=== PATIENT | female | born 1935 | race Caucasian/White ===

== ENCOUNTER 2019-10-11 21:33 | Inpatient (IN) | payer MEDICARE, OTHER ==
--- NOTE | 2019-10-11 22:16 | RAD ---
XR Hip Rt 2-3 View History: Pain Comparison: None. Findings: Intertrochanteric fracture right femur with medial displacement of the lesser trochanter 1. 2 cm. Minimal varus angulation. Impression: Intertrochanteric fracture right femur with medial displacement of the lesser trochanter 1.2 cm.
--- NOTE | 2019-10-11 22:18 | RAD ---
XR Pelvis AP STANDARD History: Pain Comparison: None. Findings: Intertrochanteric fracture right femur with minimal varus angulation. There is medial displ acement of the lesser trochanter approximately 1.2 cm. Obturator rings are intact. Subcortical cysts of the lateral acetabulum. Likely a ring osteophyte of the right femoral head/neck junction and much less likely a superimposed femoral neck fracture. Impression: Intertrochanteric fracture right femur as described with findings of a ring osteophyte of the lateral femoral head/neck junction and less likely a superimposed subcapital femoral neck fracture. CT may be beneficial if clinically warranted.
[2019-10-11 22:21] LABS: #Eosinphils 0.1 thou/uL (0.0-0.7); #Lymphocytes 1.5 thou/uL (1.20-3.40); #Monocytes 0.7 thou/uL (0.11-0.59); #Neutrophils 8.8 thou/uL (1.40-6.50); %Basophils 0.2 % (0.0-1.0); %Eosinophils 0.8 % (0.0-10.0); %Lymphocytes 13.3 % (21.0-51.0); %Monocytes 6.5 % (0.0-10.0); %Neutrophils 79.2 % (42.0-75.0); Hemoglobin 12.1 g/dL (12.0-16.0); Mean Corpuscular HGB CONC 32.8 g/dL (32.0-36.0); Mean Corpuscular Hemoglobin 30.6 pg (27.0-31.0); Mean Corpuscular Volume 93.3 fL (78.0-98.0); Mean Platelet Volume 9.6 fL (7.4-10.4); Platelet Count 138 thou/uL (130-400); RBC Distribution Width 12.3 % (11.5-14.5); Red Blood Cell (RBC) Count 3.95 mill/uL (4.20-5.40); White Blood Cell (WBC) Count 11.2 thou/uL (4.8-10.8)
[2019-10-11 22:28] LABS: INR-International Normal Ratio 2.5; PTT 39.4 SEC (22.9-36.1); Prothrombin Time 27.2 SEC (12.0-14.7)
[2019-10-11 22:34] LABS: ALT (SGPT) 9 U/L (8-55); AST (SGOT) 17 U/L (5-34); Albumin 3.6 g/dL (3.4-4.8); Alkaline Phosphatase 72 U/L (40-110); Anion Gap 13 mmol/L (10-20); BUN (Urea Nitrogen) 24 mg/dL (9.8-20.1); Bilirubin, Total 0.2 mg/dL (0.2-1.2); CK (CPK) 83 U/L (29-168); Calc. Creatinine Clearance 0 mL/min (70-130); Calcium 8.3 mg/dL (7.8-10.44); Carbon Dioxide 24 mmol/L (23-31); Chloride 108 mmol/L (98-107); Estimated GFR-MDRD 55; Globulin 2.5 g/dL (2.4-3.5); Glucose 138 mg/dL (83-110); Potassium 3.6 mmol/L (3.5-5.1); Protein, Total 6.1 g/dL (6.0-8.3); Sodium 141 mmol/L (136-145)
[2019-10-11] MEDS ORDERED: Morphine 2 MG/ML SYRINGE ONE (22:44)
[2019-10-11] MEDS ORDERED: Lidocaine 1% (PF) 30 ML VIAL ONE (23:24)
[2019-10-11] MEDS ORDERED: Phytonadione 10 MG/ML AMP PO SCH (23:45)
[2019-10-11] MEDS ORDERED: Bacitracin 1 PK ONE (23:47)
[2019-10-12] MEDS ORDERED: Morphine 4 MG/ML VIAL ONE (00:20)
[2019-10-12] MEDS ORDERED: Ondansetron PF 4 MG/2 ML Vial ONE ×2 (00:20→10:19)
[2019-10-12] MEDS ORDERED: Adacel (T-DAP) 0.5 ML SYRINGE ONE (00:23)
[2019-10-12] MEDS ORDERED: Phytonadione 10 MG/ML AMP PO SCH (00:30)
[2019-10-12] MEDS ORDERED: Acetaminophen 500 MG TAB PO SCH (01:35)
[2019-10-12] MEDS ORDERED: Cyclobenzaprine 10 MG TAB PO PRN (01:35)
[2019-10-12] MEDS ORDERED: traMADol HCl 50 MG TAB PO PRN (01:35)
[2019-10-12] MEDS ORDERED: Dextrose 50% Abboject 50 ML SYRINGE SLOW IVP PRN (01:35)
[2019-10-12] MEDS ORDERED: Ondansetron ODT 4 MG TAB PO PRN (01:35)
[2019-10-12] MEDS ORDERED: Dextrose 5% in Water 1,000 ML IV PRN (01:35)
[2019-10-12] MEDS ORDERED: Ondansetron PF 4 MG/2 ML Vial IVP PRN (01:35)
[2019-10-12] MEDS ORDERED: hydrALAZINE 20 MG/ML VIAL SLOW IVP PRN (01:35)
[2019-10-12 01:42] VITALS: BMI 28.3
[2019-10-12] MEDS: Morphine 2 MG/ML SYRINGE SLOW IVP PRN ×2 (01:56→09:56)
[2019-10-12] MEDS: Sodium Chloride 0.9% 1,000 ML IV SCH ×2 (01:58→15:06)
[2019-10-12] MEDS: Ibuprofen 200 MG TAB PO SCH ×3 (01:58→17:07)
--- NOTE | 2019-10-12 01:58 | HP ---
This is Suresh Molina PA-C dictating a report for Travis Costa MD. REQUESTING PHYSICIAN: Dr. Moran. ATTENDING SURGEON: Dr. Costa. CONSULTATIONS: Orthopedics, Dr. Melgoza. HISTORY OF PRESENT ILLNESS: The patient is an 84-year-old woman who was walking at home when she turned and fell to the ground, landing on her right side. She denied loss of consciousness. The patient also denies any syncopal symptoms prior to fall. The patient was brought to the emergency department, where she underwent evaluation and examination and was noted to have small skin tears on her right upper extremity and a right hip fracture, at which time, we were asked to evaluate the patient for admission and obtain Orthopedic consultation. ALLERGIES: NONE. CURRENT MEDICATIONS: 1. Coumadin. 2. Metoprolol. 3. Hydrochlorothiazide. PAST MEDICAL HISTORY: Atrial fibrillation, hypertension, COPD. PAST SURGICAL HISTORY: Appendectomy, cholecystectomy, hysterectomy. SOCIAL HISTORY: The patient lives at home with her spouse. She denies drug, tobacco, or alcohol use. REVIEW OF SYSTEMS: 10-point review of systems is negative as otherwise stated. PHYSICAL EXAMINATION: VITAL SIGNS: Blood pressure 156/54, heart rate 93, respirations 16, oxygen saturation 93% on room air, and temperature is 97.7. GENERAL: The patient is resting comfortably in bed. She is awake, alert, and oriented x3. Robbins Coma Scale is 15. HEENT: Head is normocephalic atraumatic. Eyes, extraocular motion intact. PERRLA bilaterally. Ears are atraumatic without discharge. Nose is atraumatic without discharge. Oropharynx is clear. NECK: Nontender with trachea is midline. No JVD. CHEST: Clear to auscultation with good inspiratory and expiratory effort. HEART: Regular rate and rhythm. ABDOMEN: Soft, flat, nontender with active bowel sounds. PELVIS: Stable with pain at the right hip consistent with her fracture. EXTREMITIES: Neurovascularly intact x4. BACK: By report is atraumatic and nontender. LABORATORY FINDINGS: White blood cell count 11.2, hemoglobin 12.1, hematocrit 36.8, platelets 138. Sodium 141, potassium 3.6, chloride 108, CO2 of 24, BUN 24, creatinine 0.97, glucose 138. LFTs are unremarkable. PTT 40, PTT 27, INR 2.5. Troponin 0.018. RADIOGRAPHIC FINDINGS: AP pelvis shows intertrochanteric fracture of the right femur. Views of the right hip show intertrochanteric femur fracture with medial displacement of the lesser trochanter of 1.2 cm. ASSESSMENT: 1. Status post ground level fall, on Coumadin. 2. Right intertrochanteric femur fracture. 3. Acute pain secondary to above. 4. History of hypertension and atrial fibrillation, on Coumadin. 5. History of chronic obstructive pulmonary disease. PLAN: Plan will be to admit the patient to the surgical floor. She will be made n.p.o. after midnight. We will do pain control, pulmonary toilet, gastritis and mechanical VTE prophylaxis. Postoperatively, we will begin physical and occupational therapy and discuss placement at that time. The evaluation, examination, laboratory, and radiographic findings were discussed with Dr. Melgoza and Dr. Costa prior to this dictation. The patient did receive vitamin K in the emergency department and we will recheck her labs in the morning. Job ID: [id number]
[2019-10-12] MEDS: Acetaminophen 325 MG TAB PO SCH ×4 (02:00→20:58)
[2019-10-12 05:36] LABS: #Lymphocytes 1.1 thou/uL (1.20-3.40); #Monocytes 0.7 thou/uL (0.11-0.59); %Basophils 0.2 % (0.0-1.0); %Eosinophils 0.3 % (0.0-10.0); %Monocytes 7.6 % (0.0-10.0); %Neutrophils 79.9 % (42.0-75.0); Hemoglobin 10.9 g/dL (12.0-16.0); Mean Corpuscular HGB CONC 31.6 g/dL (32.0-36.0); Mean Corpuscular Hemoglobin 29.5 pg (27.0-31.0); Mean Corpuscular Volume 93.2 fL (78.0-98.0); Mean Platelet Volume 9.8 fL (7.4-10.4); Platelet Count 127 thou/uL (130-400); RBC Distribution Width 12.2 % (11.5-14.5); Red Blood Cell (RBC) Count 3.69 mill/uL (4.20-5.40); White Blood Cell (WBC) Count 8.7 thou/uL (4.8-10.8)
[2019-10-12 05:40] LABS: INR-International Normal Ratio 2.8; PTT 44.1 SEC (22.9-36.1); Prothrombin Time 28.9 SEC (12.0-14.7)
[2019-10-12] MEDS: traMADol HCl 50 MG TAB PO PRN ×3 (05:44→22:48)
[2019-10-12 05:56] LABS: Anion Gap 11 mmol/L (10-20); BUN (Urea Nitrogen) 25 mg/dL (9.8-20.1); Calc. Creatinine Clearance 57 mL/min (70-130); Calcium 8.1 mg/dL (7.8-10.44); Carbon Dioxide 24 mmol/L (23-31); Chloride 109 mmol/L (98-107); Estimated GFR-MDRD 59; Glucose 122 mg/dL (83-110); Magnesium 1.6 mg/dL (1.6-2.6); Phosphorus 3.3 mg/dL (2.3-4.7); Potassium 4.2 mmol/L (3.5-5.1); Sodium 140 mmol/L (136-145)
[2019-10-12] MEDS ORDERED: Magnesium 2 GM/50 ML 2 GM in Premix Bag 1 BAG IVPB SCH (06:30)
[2019-10-12] MEDS: Ipratropium Bromide 2.5 ml Neb NEB SCH ×4 (07:31→23:57)
[2019-10-12] MEDS ORDERED: CEFAZOLIN 2 GM in Premix Bag 1 BAG IVPB SCH (08:00)
[2019-10-12] MEDS ORDERED: Hydrochlorothiazide 25 MG TAB PO SCH ×2 (09:00→22:30)
[2019-10-12] MEDS ORDERED: Non-Formulary Item 1 EACH (Fluticasone/Salmeterol [Advair Diskus 250/50] 1 PUFF) INH SCH (09:00)
[2019-10-12] MEDS ORDERED: Metoprolol Tartrate 25 MG TAB PO SCH ×2 (09:00→22:30)
[2019-10-12] MEDS ORDERED: Non-Formulary Item 1 EACH (Hydrochlorothiazide [Hydrochlorothiazide] 12.5 MG) PO SCH (09:00)
[2019-10-12] MEDS ORDERED: Non-Formulary Item 1 EACH (Tiotropium Bromide [Spiriva] 18 MCG) INH SCH (09:00)
--- NOTE | 2019-10-12 09:35 | RAD ---
Right ankle 2 views HISTORY: Right ankle injury. FINDINGS: Talar dome and ankle mortise are intact. Soft tissue swelling overlying the lateral malleol us. No acute fracture or dislocation. 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 IMPRESSION: Soft tissue swelling and degenerative changes. No acute osseous abnormalities are demonst rated.
[2019-10-12 09:45] LABS: INR-International Normal Ratio 2.6; Prothrombin Time 27.7 SEC (12.0-14.7)
[2019-10-12] MEDS: Levothyroxine Sodium 75 MCG TAB PO SCH (10:15)
[2019-10-12] MEDS: Famotidine 20 MG TAB PO SCH (10:15)
[2019-10-12] MEDS ORDERED: Glycopyrrolate 0.2 MG/ML 5 ML SYRINGE ONE (10:19)
[2019-10-12] MEDS ORDERED: Lidocaine 1% PF 5 ML VIAL ONE (10:19)
[2019-10-12] MEDS ORDERED: Rocuronium Bromide 10 MG/ML (10ML VIAL) ONE (10:19)
[2019-10-12] MEDS ORDERED: Dexamethasone 20 MG/5 ML VIAL ONE (10:19)
[2019-10-12] MEDS ORDERED: PROPOFOL 200 MG/20 ML VIAL ONE (10:19)
[2019-10-12] MEDS ORDERED: Fentanyl 100 MCG/2 ML VIAL ONE (12:36)
[2019-10-12 13:24] LABS: INR-International Normal Ratio 1.8; PTT 40.7 SEC (22.9-36.1); Prothrombin Time 20.7 SEC (12.0-14.7)
--- NOTE | 2019-10-12 13:48 | CON ---
DATE OF CONSULTATION: CHIEF COMPLAINT: Hip pain. HISTORY OF PRESENT ILLNESS: Ms. Shields is an 84-year-old female, who was at home yesterday, evening walking. She tripped in her home and lost balance. She fell onto her side. She was unable to bear weight. She had immediate right hip pain. She was taken to the emergency department by EMS. X-rays have determined a right intertrochanteric femur fracture. She has been admitted to the hospital. Orthopedics was consulted to treat her intertrochanteric fracture. She is comfortable currently. Of note, the patient is on Coumadin and she has had an elevated INR at 2.8. ALLERGIES: NONE. MEDICATIONS: 1. Coumadin. 2. Metoprolol. 3. Hydrochlorothiazide. PAST MEDICAL HISTORY: Atrial fibrillation, hypertension, and COPD. PAST SURGICAL HISTORY: Appendectomy, cholecystectomy, and hysterectomy. SOCIAL HISTORY: The patient lives independently. Her spouse is at the bedside. She denies tobacco, alcohol, or drug use. REVIEW OF SYSTEMS: Positive for right hip pain especially with any movement. Otherwise, negative 10-point review of systems. PHYSICAL EXAMINATION: VITAL SIGNS: Temperature is 97.9, pulse is 92, respiratory rate is 16, oxygen saturation 94%, and blood pressure is 121/67. GENERAL: She is alert, lying supine, in no apparent distress. RESPIRATORY: Breathing comfortably. ABDOMEN: Soft, nontender, and nondistended. MUSCULOSKELETAL: The patient's right leg is somewhat shortened and rotated. She has pain with any hip motion. She also has pain to palpation over her ankle, especially at the distal fibula. The left lower extremity and upper extremities are atraumatic. IMAGING DATA: X-rays of the right hip and pelvis demonstrated intertrochanteric femur fracture of the proximal femur. This is comminuted and displaced. IMPRESSION: Right intertrochanteric femur fracture in an elderly female on Coumadin for atrial fibrillation. PLAN: At this point, the patient will require surgical intervention. She has received vitamin K and will receive FFP. If we can get her INR below 2.0, I will proceed with surgery today. This will be intramedullary nail fixation of the right hip. She is aware of risks and benefits. Goal of surgery is to promote early mobilization and prevent complications of prolonged bedrest. She is at risk for complication given her age and comorbidities. She should be n.p.o. We will give her antibiotic prophylaxis and DVT prophylaxis. Job ID: [id number]
--- NOTE | 2019-10-12 14:46 | RAD ---
Exam:Intraoperative fluoroscopy HISTORY: Internal fixation of a right hip intertrochanteric fracture COMPARISON: None FINDINGS: Internal fixation hardware comprising of a gamma nail is noted. Fracture lucency is identif ied. Near anatomic alignment Exposure: 37.8 seconds. 6.24 mGy IMPRESSION: Intraoperative fluoroscopy as above
[2019-10-12] MEDS ORDERED: PACU-Morphine 4MG/ML VIAL SLOW IVP PRN (15:09)
[2019-10-12] MEDS ORDERED: HYDROmorphone 2 MG/ML VIAL SLOW IVP PRN (15:09)
[2019-10-12] MEDS ORDERED: Ondansetron HCl/PF 4 MG/2 ML Vial IVP PRN (15:09)
[2019-10-12] MEDS ORDERED: Promethazine HCl 25 MG/ML VIAL SLOW IVP PRN (15:09)
[2019-10-12] MEDS ORDERED: Morphine Sulfate 2 MG/ML SYRINGE SLOW IVP PRN (15:09)
[2019-10-12] MEDS ORDERED: Promethazine HCl 25 MG/ML VIAL IM PRN (15:09)
--- NOTE | 2019-10-12 15:12 | PRG ---
DATE OF SERVICE: 10/12/2019 This is Shin Andino PA-C dictating a report for Dr. Carbajal. SUBJECTIVE: Ms. Shields is an 84-year-old female, status post ground level fall. She sustained right hip fracture. She also has history of COPD; hypertension; atrial fibrillation, on Coumadin. This morning, INR is 2.8. Dr. Melgoza plans to take the patient to the OR if INR is below 2. The patient was ordered 2 units of FFP this morning. Around noon, the patient's INR is 1.8. The patient planned to go to the OR with Dr. Melgoza this afternoon. The patient reports pain is well controlled. She is n.p.o. at midnight and her vital signs have been stable. OBJECTIVE: GENERAL: The patient is lying in bed comfortably with no acute respiratory distress. The pain of the right hip is tolerable. VITAL SIGNS: Temperature 97, heart rate 72, respiratory rate 16, O2 saturation 94 on room air, and blood pressure 121/67. LUNGS: Clear bilaterally. HEART: Regular rate and rhythm. ABDOMEN: Soft and nondistended. EXTREMITIES: Neurovascularly intact x4. NEUROLOGIC: No focal neurologic deficits. ASSESSMENT: 1. Status post ground level fall. 2. Right hip fracture. 3. History of chronic obstructive pulmonary disease; hypertension; atrial fibrillation, on Coumadin. PLAN: Will be proceed with right hip fracture fixation this afternoon because the INR is below 2 at the moment. Continue supportive care. Continue pain control. The patient will be working with PT and OT postop, and the patient will need pharmacological DVT prophylaxis tomorrow. Anticipate placement in rehabilitation facility. The patient was seen and evaluated with Dr. Carbajal on round this morning. Job ID: [id number]
[2019-10-12] MEDS: Mometasone/Formoterol 120 PUFF INHALER INH SCH (18:46)
--- NOTE | 2019-10-12 20:01 | OP ---
DATE OF PROCEDURE: 10/12/2019 PROCEDURE PERFORMED: Right femur intramedullary nail. PREOPERATIVE DIAGNOSIS: Right femur intertrochanteric fracture. POSTOPERATIVE DIAGNOSIS: Right femur intertrochanteric fracture. COMPLICATIONS: None. ESTIMATED BLOOD LOSS: 150 mL. PRODUCER ARBORIST MANAGER: Josh Ramos PA-C IMPLANT: Synthes 10 mm short trochanteric nail with helical blade. INDICATIONS: Ms. Shields is an 84-year-old female, who fell and fractured her right femur. She has been indicated for intramedullary nail of the right femur to restore mobility and prevent complications of prolonged bedrest. Risk of surgery have been reviewed and she has elected to proceed with the operation. DESCRIPTION OF PROCEDURE: Ms. Shields was identified in the preoperative holding area. Her correct extremity was marked. She was carried to the operating room. She was positioned supine. General anesthesia was induced. A multidisciplinary time-out was performed. The right lower extremity was prepped and draped in sterile fashion. We obtained an appropriate reduction with traction table. We evaluated with intraoperative x-ray. At this point, we made a small incision over the greater trochanter. We dissected down and placed our guidewire to the tip of the trochanter. We then over-reamed the guidewire. Next, we inserted a 10 mm short trochanteric nail. We then placed a guide pin in the centered position of the femoral head. We overdrilled this. We then impacted a helical blade, which was locked in a dynamic position. Finally, we placed a distal Crosslock screw using the appropriate guide. We then thoroughly irrigated with copious lavage. We closed the wounds appropriately. We took final x-ray images. We then transported the patient to the recovery room in good condition. Job ID: [id number]
[2019-10-12] MEDS: Atorvastatin Calcium 20 MG TAB PO SCH (20:58)
[2019-10-12] MEDS: Senokot S 8.6-50 MG TAB PO SCH (20:58)
[2019-10-12] MEDS ORDERED: Simvastatin 40 MG TAB PO SCH (21:00)
[2019-10-12] MEDS: CEFAZOLIN 2 GM in Premix Bag 1 BAG IVPB SCH (21:00)
[2019-10-12] MEDS ORDERED: Melatonin 3 MG TAB PO PRN (21:03)
[2019-10-12] MEDS ORDERED: Calcium Carbonate + Vit D 1 TAB PO SCH (22:30)
[2019-10-12] MEDS ORDERED: Montelukast Sodium 10 mg Tablet PO SCH (22:30)
[2019-10-12] MEDS ORDERED: Estrogens, Conjugated 0.3 MG TAB PO SCH (22:30)
[2019-10-13] MEDS: Acetaminophen 325 MG TAB PO SCH ×4 (01:43→19:26)
[2019-10-13] MEDS: Ibuprofen 200 MG TAB PO SCH ×2 (01:43→08:48)
--- NOTE | 2019-10-13 02:15 | PRG ---
DATE OF SERVICE: 10/13/2019 SUBJECTIVE: The patient is currently on the surgical floor. She is admitted yesterday, status post ground level fall when she sustained a right femur intertrochanteric fracture. The patient is on Coumadin and she was given vitamin K in the emergency department last night and this morning, she was given 2 units of fresh frozen plasma, allowing her to go to the operating room to undergo a right femur intramedullary nail placement. She tolerated the procedure well. At the time of my visit, she was on the surgical floor. Due to her arrival back on the floor, she did not get to work with Physical Therapy today. She is tolerating her diet and her pain is controlled at this time. PHYSICAL EXAMINATION: VITAL SIGNS: Stable. The patient is afebrile. GENERAL: The patient is resting comfortably in bed. She is awake, alert, and oriented x3. Oleksandr Coma Scale is 15. HEENT: Unremarkable. LUNGS: Clear to auscultation bilaterally. HEART: Irregularly irregular consistent with her atrial fibrillation. ABDOMEN: Soft, flat, nontender with active bowel sounds. EXTREMITIES: Neurovascularly intact x4. Postop dressing is clean, dry, and intact. ASSESSMENT: 1. Status post ground level fall, on Coumadin. 2. Right intertrochanteric femur fracture, status post intramedullary nailing. 3. Acute pain secondary to above. 4. History of hypertension and atrial fibrillation and chronic obstructive pulmonary disease. PLAN: Will be to continue supportive care. Encourage physical and occupational therapy and await placement decision. Job ID: [id number]
[2019-10-13] MEDS: CEFAZOLIN 2 GM in Premix Bag 1 BAG IVPB SCH (04:52)
[2019-10-13 05:22] LABS: INR-International Normal Ratio 1.5; Prothrombin Time 17.8 SEC (12.0-14.7)
[2019-10-13 05:26] LABS: Phosphorus 3.1 mg/dL (2.3-4.7)
[2019-10-13 05:28] LABS: Anion Gap 11 mmol/L (10-20); BUN (Urea Nitrogen) 21 mg/dL (9.8-20.1); Calc. Creatinine Clearance 60 mL/min (70-130); Calcium 7.9 mg/dL (7.8-10.44); Carbon Dioxide 24 mmol/L (23-31); Chloride 106 mmol/L (98-107); Estimated GFR-MDRD 63; Glucose 140 mg/dL (83-110); Potassium 4.6 mmol/L (3.5-5.1); Sodium 136 mmol/L (136-145)
[2019-10-13] MEDS: Levothyroxine Sodium 75 MCG TAB PO SCH (07:19)
[2019-10-13] MEDS: Ipratropium Bromide 2.5 ml Neb NEB SCH ×3 (07:22→19:22)
[2019-10-13] MEDS: Mometasone/Formoterol 120 PUFF INHALER INH SCH ×2 (07:22→19:32)
[2019-10-13] MEDS: Polyethylene Glycol 3350 17 GM Packet PO SCH (08:47)
[2019-10-13] MEDS: Famotidine 20 MG TAB PO SCH (08:47)
[2019-10-13] MEDS: Senokot S 8.6-50 MG TAB PO SCH ×2 (08:48→21:31)
[2019-10-13] MEDS: traMADol HCl 50 MG TAB PO PRN (09:39)
[2019-10-13] MEDS ORDERED: Ibuprofen 200 MG TAB PO PRN (09:56)
--- NOTE | 2019-10-13 10:03 | PRG ---
DATE OF SERVICE: 10/13/2019 SUBJECTIVE: Sena is an 84-year-old female postoperative day 1 from a right hip short transfemoral nail fixation for a three-part intertrochanteric hip fracture on the right. Her pain is better this morning and she is able to engage with physical therapy and is able to stand and take a few steps at bedside. OBJECTIVE: VITAL SIGNS: Temperature 97.3, pulse rate 80, respiratory rate 14 and nonlabored, and blood pressure is 104/60. GENERAL: She is alert and oriented to person, place, time, and situation. Responsive and appropriate with examiner. Incision is clean, no shortening or malrotation. No leg length discrepancy is identified and our incision is clean. No strike through. LABORATORY DATA: Hemoglobin and hematocrit 10.9 and 34.4. IMPRESSION: An 84-year-old female postoperative day 1 right hip short nail fixation for a three-part intertrochanteric hip fracture. PLAN: Continue current care. Resume anticoagulation. Job ID: [id number]
[2019-10-13] MEDS: traMADol HCl 50 MG TAB PO SCH ×3 (11:07→21:54)
--- NOTE | 2019-10-13 15:45 | PRG ---
DATE OF SERVICE: 10/13/2019 SUBJECTIVE: Ms. Shields is an 84-year-old female, status post ground level fall. She sustained right hip fracture. She underwent ORIF of right hip fracture with Dr. Melgoza yesterday. The patient tolerated the procedure well. Postop, the patient reports she has been doing good. Pain is controlled. She tolerated with her regular diet. She developed no fever or shortness of breath. Her urine is adequate. OBJECTIVE: GENERAL: The patient is lying in bed comfortable with no acute respiratory distress. The patient is alert and awake. GCS 15. VITAL SIGNS: Temperature 97.5, heart rate 82, respiratory rate 16, O2 saturation 94% on room air, and blood pressure 102/65. LUNGS: Clear bilaterally. HEART: Regular rate and rhythm. ABDOMEN: Soft, nondistended. EXTREMITIES: Postop dressing clean, dry, intact. Neurovascularly intact x4. ASSESSMENT: 1. Status post ground level fall. 2. Right hip fracture. 3. History of chronic obstructive pulmonary disease. 4. Atrial fibrillation, on Coumadin. PLAN: The patient will be working with PT/OT today and we will initiate DVT prophylaxis with Lovenox bridge and start warfarin 5 mg a day. We will recheck INR tomorrow. Anticipate placement in [facility]. The patient was seen and evaluated with Dr. Carbajal on rounds this morning. Job ID: [id number]
[2019-10-13] MEDS: Acetaminophen 500 MG TAB PO SCH ×2 (16:27→21:47)
[2019-10-13] MEDS ORDERED: Warfarin Sodium 5 MG TAB PO SCH (17:00)
[2019-10-13] MEDS ORDERED: Estrogens, Conjugated 0.3 MG TAB PO SCH (21:00)
[2019-10-13] MEDS ORDERED: Calcium Carbonate + Vit D 1 TAB PO SCH (21:00)
[2019-10-13] MEDS ORDERED: Montelukast Sodium 10 mg Tablet PO SCH (21:00)
[2019-10-13] MEDS ORDERED: Enoxaparin Sodium 40 MG/0.4 ML SYRINGE SC SCH (21:00)
[2019-10-13] MEDS ORDERED: Hydrochlorothiazide 25 MG TAB PO SCH (21:00)
[2019-10-13] MEDS ORDERED: Metoprolol Tartrate 25 MG TAB PO SCH (21:00)
[2019-10-13] MEDS: Atorvastatin Calcium 20 MG TAB PO SCH (21:30)
--- NOTE | 2019-10-14 00:12 | PRG ---
DATE OF SERVICE: 10/13/2019 SUBJECTIVE: The patient remains on the surgical floor. She is status post open reduction and internal fixation of a right femur fracture. She tolerated it well. Today, she did work with Physical and Occupational Therapy. She is tolerating a diet. Her pain is controlled. The day team has also resumed her Coumadin with a Lovenox bridge. The patient is also working toward placement in [facility]. PHYSICAL EXAMINATION: VITAL SIGNS: Stable. The patient is afebrile. GENERAL: The patient is resting comfortably in bed. She was asleep when I entered the room, but did wake up shortly to tell me that her pain was controlled and she had no issues at this time. Respirations are nonlabored. The patient is moving all of her extremities. Her postop dressing is clean, dry, and intact. ASSESSMENT: 1. Status post ground level fall, on Coumadin. 2. Status post intramedullary nailing of a right intertrochanteric femur fracture. 3. History of chronic obstructive pulmonary disease, hypertension, and atrial fibrillation. PLAN: Will be to continue supportive care, chemical VTE prophylaxis as instructed by day team and work on placement. Job ID: [id number]
[2019-10-14] MEDS: Ipratropium Bromide 2.5 ml Neb NEB SCH ×3 (00:25→15:58)
[2019-10-14] MEDS: Acetaminophen 500 MG TAB PO SCH (03:50)
[2019-10-14 05:17] LABS: INR-International Normal Ratio 1.2; PTT 38.1 SEC (22.9-36.1); Prothrombin Time 15.6 SEC (12.0-14.7)
[2019-10-14] MEDS: traMADol HCl 50 MG TAB PO SCH (06:09)
[2019-10-14] MEDS ORDERED: Acetaminophen/Codeine 30-300mg Tablet PO PRN ×2 (06:53)
[2019-10-14] MEDS: Famotidine 20 MG TAB PO SCH (08:56)
[2019-10-14] MEDS: Polyethylene Glycol 3350 17 GM Packet PO SCH (08:56)
[2019-10-14] MEDS: Levothyroxine Sodium 75 MCG TAB PO SCH (08:56)
[2019-10-14] MEDS: Senokot S 8.6-50 MG TAB PO SCH (08:56)
[2019-10-14] MEDS: Mometasone/Formoterol 120 PUFF INHALER INH SCH (10:05)
[2019-10-14] MEDS: Acetaminophen/Codeine 30-300mg Tablet PO SCH ×2 (12:45→18:07)
[2019-10-14] MEDS ORDERED: Warfarin Sodium 5 MG TAB PO SCH (17:00)
[2019-10-14 17:32] VITALS: BP 102/65; TEMP 98.6
--- NOTE | 2019-10-15 08:11 | PQF ---
ADRIEN MATTSON RICHARD D MD [id number] [facility] [id number] CLINICAL DOCUMENTATION CLARIFICATION FORM: POST DISCHARGE Addendum to original discharge summary date: ____ Late entry note date: __ DATE: 10/15/2019 ATTN:BIANCA EWING MD Please exercise your independent, professional judgment in responding to the clarification form. Clinical indicators are provided on the bottom of this form for your review Please check appropriate box(s): [yes ] Paroxysmal Atrial Fibrillation [ ] Persistent Atrial Fibrillation [ yes ] Chronic Atrial Fibrillation (includes permanent Atrial Fibrillation) [ ] Other diagnosis [ ] Unable to determine For continuity of documentation, please document condition throughout progress notes and discharge summary. Thank You. CLINICAL INDICATORS - SIGNS / SYMPTOMS / LABS PMH; Atrial fibrillation -Documented in H&P on 10/11 by Tracy Prince PA-C The patient is on Coumadin and she has had an elevated INR at 2.8-Documented in consultation report on 10/12 by Ki Melgoza MD Atrial fibrillation on Coumadin-Documented in PN on 10/13 by Shin Andino PA-C RISKS FACTORS HTN-Documented in H&P on 10/11 by Tracy Prince PA-C PMH; Atrial fibrillation -Documented in H&P on 10/11 by Tracy Prince PA-C TREATMENTS: Current medications:Coumadin-Documented in H&P on 10/11 by Tracy Prince PA-C (This form is maintained as a part of the permanent medical record) 2014 [employer]. All Rights Reserved [email or web address]
[2019-10-15] MEDS ORDERED: Warfarin Sodium 7.5 MG TAB PO SCH (17:00)
--- NOTE | 2019-10-17 09:50 | DIS ---
DATE OF ADMISSION: 10/11/2019 DATE OF DISCHARGE: 10/14/2019 ADMISSION DIAGNOSES: 1. Status post ground level fall. 2. Right hip fracture. 3. History of atrial fibrillation, on Coumadin. 4. Chronic obstructive pulmonary disease. DISCHARGE DIAGNOSES: 1. Status post ground level fall. 2. Right hip fracture. 3. Atrial fibrillation, on Coumadin. 4. History of chronic obstructive pulmonary disease. CONSULTING PHYSICIAN: Dr. Melgoza. PROCEDURE: Right femur intramedullary nail. HOSPITAL COURSE: Ms. Shields is an 84-year-old female status post ground level fall. She sustained right hip fracture. She underwent ORIF of right hip fracture with Dr. Melgoza, postop day #2. The patient tolerated the procedure well. Postop, the patient doing good. Pain is well controlled. She is able to work with Physical Therapy and Occupational therapy. Her urine adequate. She tolerated with her regular diet. Her bowel is normal. Overall, she voiced no concern. PHYSICAL EXAMINATION: GENERAL: The patient lying in bed comfortable with no acute respiratory distress. VITAL SIGNS: Temperature 98.7, heart rate 90, respiratory rate is 16, O2 saturation 98 on 2 L cannula, and blood pressure is 110/50. LUNGS: Clear bilaterally. HEART: Regular rate and rhythm. ABDOMEN: Soft, nondistended. EXTREMITIES: Neurovascularly intact x4. NEUROLOGICAL: No focal neurology deficits. DISCHARGE DISPOSITION: Swing bed facility. DISCHARGE CONDITION: Fair. DISCHARGE INSTRUCTIONS: The patient is to take medication as directed. The patient is encouraged working with Physical Therapy and Occupational Therapy. Continue DVT prophylaxis. Resume on home medication. Resume warfarin and we will need to recheck INR per protocol. DISCHARGE MEDICATION: 1. Tylenol. 2. Lovenox. 3. Tylenol No.3. 4. Resume all home medication. Job ID: [id number]
--- NOTE | 2019-10-22 13:56 | EKG ---
Test Reason : FALL Blood Pressure : / mmHG Vent. Rate : 077 BPM Atrial Rate : 085 BPM P-R Int : 000 ms QRS Dur : 106 ms QT Int : 464 ms P-R-T Axes : 000 074 047 degrees QTc Int : 525 ms Atrial fibrillation Prolonged QT Abnormal ECG Confirmed by TUSHAR BEE MD ([id number]), editorial director IDALMIS FERRO ([id number]) on 10/22/2019 1:56:21 PM Referred By: ROHIT Confirmed By:TUSHAR BEE MD
== END 2019-10-14 18:19 | DRG 482 ==
LOC: ERS 21:33 → SJJU 23:05
PROVIDERS: ADMIT Specialist; ATTEND Specialist
PROC: 0QS636Z Reposition Right Upper Femur with Intramedullary Internal Fixation Device, Percutaneous Approach (ICD-10-PCS; principal; 2019-10-12)
DX: S72.141A Displaced intertrochanteric fracture of right femur, initial encounter for closed fracture (principal); J44.9 Chronic obstructive pulmonary disease, unspecified; I10 Essential (primary) hypertension; G89.11 Acute pain due to trauma; I48.0 Paroxysmal atrial fibrillation; Z90.49 Acquired absence of other specified parts of digestive tract; Z90.710 Acquired absence of both cervix and uterus; W18.39XA Other fall on same level, initial encounter; Y93.01 Activity, walking, marching and hiking; Y92.098 Other place in other non-institutional residence as the place of occurrence of the external cause
CPT/HCPCS: 12001; 36415; 36430; 72170; 76000; 80048; 80053; 82550; 83735; 84100; 84484; 85025; 85610; 85730; 86850; 86900; 86901; 90471; 90715; 93005; 94640; 96374; 96375; 96376; C1713; J0690; J1100; J1650; J2001; J2270; J2405; J2704; J3010; J3430; J3475; J7620; P9059; Q0162

== ENCOUNTER 2019-10-18 14:14 | Inpatient (IN) | payer MEDICARE, OTHER ==
[2019-10-18] MEDS ORDERED: MD-Gastroview 120 ML BOT ONE (14:22)
--- NOTE | 2019-10-18 14:57 | PDOC.HHP ---
Hospitalist HPI - History of Present Illness Abdominal pain History of Present Illness: This is an 84-year-old female with a recent right hip fracture status post pinning last week. She was discharged to snf facility yesterday. Today she was experiencing persistent nausea and vomiting and was transferred to [facility] emergency department where an abdominal x-ray was performed and showed results suggestive of small bowel obstruction. The patient was subsequently transferred to our facility for further evaluation. The patient has a past medical history of hypertension, COPD, atrial fibrillation on warfarin, and hypothyroidism. Hospitalist ROS - Review of Systems All other systems reviewed; all pertinent +/- noted in HPI/Subj Hospitalist History - Past Medical History Cardiac: reports: AFIB, HTN Pulmonary: reports: COPD Endocrine: reports: Hypothyroidism - Past Surgical History Other Surgical History: Right hip fracture pinning - Family History Family History: reports: no pertinent history - Exam General Appearance: NAD Eye: PERRL ENT: normocephalic atraumatic Neck: supple Heart: RRR, no murmur, no gallops, no rubs Respiratory: CTAB, no wheezes, no rales Gastrointestinal: soft, tender to palpation Neurological: cranial nerve grossly intact, no focal deficits Hospitalist Results - Labs Result Diagrams: 10/19/19 03:43 10/19/19 03:43 Hospitalist H&P A/P - Problem (1) SBO (small bowel obstruction) Code(s): K56.609 - UNSP INTESTNL OBST, UNSP TO PARTIAL VERSUS COMPLETE OBST Status: Acute (2) HTN (hypertension) Code(s): I10 - ESSENTIAL (PRIMARY) HYPERTENSION Status: Acute (3) COPD (chronic obstructive pulmonary disease) Status: Acute (4) Afib Code(s): I48.91 - UNSPECIFIED ATRIAL FIBRILLATION Status: Acute - Plan Plan: Admitted for possible small bowel obstruction based on her symptoms and abdominal x-ray. N.p.o. Insert NG tube and start low intermittent suction. Check CT abdomen and pelvis with contrast. Consult the surgical team. DuoNeb every 6 hours as needed for COPD. Restart her rate control medications and warfarin for A. fib once she is able to take p.o. Check INR in the morning. This dictation was completed using advanced voice recognition dictation software. There may be some errors in grammar, punctuation, context or verbiage that were not identified and corrected at the time of this dictation. If questions are present, please consult the author of this dictation for further clarification. It is my goal to try to catch these mistakes at the time of dictation but errors may still occur. Thank you for your understanding.
[2019-10-18] MEDS ORDERED: Morphine 2 MG/ML SYRINGE SLOW IVP SCH (15:00)
[2019-10-18] MEDS: Sodium Chloride 0.9% 1,000 ML IV SCH (15:00)
[2019-10-18] MEDS ORDERED: Morphine 2 MG/ML SYRINGE SLOW IVP PRN (15:18)
[2019-10-18 15:55] LABS: Hemoglobin 9.1 g/dL (12.0-16.0); Mean Corpuscular HGB CONC 33.4 g/dL (32.0-36.0); Mean Corpuscular Hemoglobin 31.9 pg (27.0-31.0); Mean Corpuscular Volume 95.6 fL (78.0-98.0); Platelet Count 231 thou/uL (130-400); RBC Distribution Width 13.8 % (11.5-14.5); Red Blood Cell (RBC) Count 2.85 mill/uL (4.20-5.40); White Blood Cell (WBC) Count 11.8 thou/uL (4.8-10.8)
[2019-10-18 15:58] LABS: INR-International Normal Ratio 1.4; Prothrombin Time 17.3 SEC (12.0-14.7)
[2019-10-18 16:09] LABS: Band 15 % (5-11); Lymphocytes 13 % (21-51); MDiff Complete? YES; Monocytes 6 % (0-10); Neutrophil 65 % (42-75); Nucleated RBC 1 % (0); Platelet Morphology Comment Appears Adequate; Polychromasia MODERATE = 3-4 cells (100X) (0-2/hpf)
[2019-10-18 16:13] LABS: Anion Gap 20 mmol/L (10-20); BUN (Urea Nitrogen) 27 mg/dL (9.8-20.1); Calc. Creatinine Clearance 49 mL/min (70-130); Calcium 8.8 mg/dL (7.8-10.44); Carbon Dioxide 23 mmol/L (23-31); Chloride 98 mmol/L (98-107); Estimated GFR-MDRD 50; Glucose 102 mg/dL (83-110); Potassium 3.5 mmol/L (3.5-5.1); Sodium 137 mmol/L (136-145)
[2019-10-18] MEDS ORDERED: Sodium Chloride 0.9% 10 ML ONE (16:40)
[2019-10-18] MEDS: Ondansetron PF 4 MG/2 ML Vial IVP PRN (17:07)
[2019-10-18] MEDS: Metoprolol Tartrate 5 MG/5 ML VIAL IVP PRN ×2 (17:09→22:16)
--- NOTE | 2019-10-18 18:06 | CON ---
DATE OF CONSULTATION: 10/18/2019 GENERAL SURGEON: Dr. Carbajal. HISTORY OF PRESENT ILLNESS: The patient is an 84-year-old female presented to the emergency department status post discharge from long term facility with persistent nausea and vomiting. The patient was recently inpatient at [facility] after a mechanical fall, where the patient sustained a right hip fracture for which she went to the OR with Dr. Melgoza and received a right femur IM nail. She presents today with persistent nausea, vomiting. Abdominal x-ray demonstrates concern for ileus. Hospitalists have admitted the patient and have consulted General Surgery for concern for small bowel obstruction. At the time of our evaluation, the patient reported she was not having any abdominal pain, but it was difficult to ascertain as to when her last bowel movement was. She does report that she did have a bowel movement postoperatively. NG tube was in place with green bilious output, not working appropriately. NG tube was flushed several times and working well before leaving the patient's room. The patient reports she has continued nausea, but has not vomited since the NG tube has been placed. REVIEW OF SYSTEMS: All additional 10-point review of systems negative except as indicated above. PAST MEDICAL HISTORY: Hypertension, COPD, atrial fibrillation on Coumadin, and hypothyroidism. PAST SURGICAL HISTORY: Right hip IM nail, appendectomy, cholecystectomy, hysterectomy. SOCIAL HISTORY: The patient lives at home with her spouse. She denies drug, alcohol, and tobacco use. MEDICATIONS: Include; 1. Tylenol with codeine. 2. Calcium and vitamin D. 3. Flexeril. 4. Lovenox. 5. Estrogen. 6. Pepcid. 7. Fluticasone. 8. Hydralazine. 9. Hydrochlorothiazide. 10. Ibuprofen. 11. DuoNebs. 12. Levothyroxine. 13. Melatonin. 14. Metoprolol. 15. Singulair. 16. MiraLAX. 17. Senokot S. 18. Simvastatin. 19. Spiriva. 20. Coumadin. The patient takes 5 mg p.o. daily on Thursday through Thursday and takes 7.5 mg on Thursday. ALLERGIES: NO KNOWN DRUG ALLERGIES. PHYSICAL EXAMINATION: VITAL SIGNS: Temperature 98.1, pulse 108, respirations 20, oxygen saturation 100% on 2 L nasal cannula, blood pressure 128/60. GENERAL: Ill-appearing elderly female, sitting up in bed with NG tube in place. There is some moderate distress. The patient reports nausea. PULMONARY: Equal chest rise and fall. Clear breath sounds bilaterally. No signs of acute respiratory distress. CARDIAC: Tachycardic and irregular rhythm. No murmurs, gallops, or rubs. GI: Abdomen is soft, nontender, nondistended. EXTREMITIES: 2+ pulses in all extremities. Gross motor and sensations intact. No significant swelling noted. NEURO: GCS is 15. Pupils are equal, round, and reactive to light bilaterally. LABORATORY FINDINGS: White count 11.8, hemoglobin 9.1, hematocrit 27.2, platelets 231. INR 1.4. Sodium 137, potassium 3.5, chloride 98, bicarb 23, BUN 27, creatinine 1.06, glucose 102. DIAGNOSTIC FINDINGS: X-ray of the abdomen completed this morning demonstrates evidence of small bowel obstruction, probable fluid-filled distended stomach, minimal gas and fecal material in the colon. ASSESSMENT: 1. Adynamic ileus, rule out small-bowel obstruction. 2. History of atrial fibrillation, on Coumadin; hypertension; hyperlipidemia; chronic obstructive pulmonary disease, and hypothyroidism. PLAN: The patient is to receive an abdominal small-bowel follow-through this evening, we will continue n.p.o. IV pain medications p.r.n., normal saline at [address] We will also place the patient on IV Pepcid b.i.d. repeat lab work in the morning. Additional medical management by hospitalist team. Once the patient's small bowel follow-through has been completed, we will determine whether or not the patient requires surgical intervention. The patient also to work with PT/OT and ambulate as much as possible. Continue NG to low intermittent wall function when patient is not getting the small bowel follow-through. This patient was seen and examined by Dr. Carbajal and myself this evening on telemetry. Job ID: [id number]
[2019-10-18] MEDS: Enoxaparin Sodium 40 MG/0.4 ML SYRINGE SC SCH (22:16)
[2019-10-18] MEDS: Famotidine/PF 20 mg/2ml Vial SLOW IVP SCH (22:16)
--- NOTE | 2019-10-18 23:18 | RAD ---
EXAM: XR Small Bowel STANDARD DATE: 10/18/2019 4:06 PM INDICATION: Small bowel obstruction COMPARISON: Abdomen 2 views dated October 18, 2019 FINDING: Gastrografin contrast was administered through the patient's gastric catheter. There is axel y little migration of the Gastrografin contrast through the level of the jejunum. Dilated loops of small bowel remain within the upper central abdomen. Gas is present with the level of the rectum and colon. Cholecystectomy clips are seen within the right upper quadrant of the abdomen. IMPRESSION:Findings most consistent with a moderate to high-grade partial small bowel obstruction. Ve ry minimal amounts of contrast migrated through the level of the proximal small bowel by 4 hours. Findings were called to JULIANNA To at 11:13 PM on October 18, 2019. Instructed signal technician to instruct the patient's nurse to place patient's NG tube back on gentle suction and keep the patient's head of bed elevated 30 degrees to prevent aspiration of Gastrografin remaining within the stomach.
[2019-10-19] MEDS: Sodium Chloride 0.9% 1,000 ML IV SCH ×3 (03:02→20:41)
[2019-10-19] MEDS: Metoprolol Tartrate 5 MG/5 ML VIAL IVP PRN ×3 (03:03→15:30)
[2019-10-19 04:03] LABS: #Eosinphils 0.1 thou/uL (0.0-0.7); #Lymphocytes 1.2 thou/uL (1.20-3.40); #Neutrophils 9.6 thou/uL (1.40-6.50); %Basophils 0.2 % (0.0-1.0); %Eosinophils 0.5 % (0.0-10.0); %Lymphocytes 9.8 % (21.0-51.0); %Monocytes 8.2 % (0.0-10.0); %Neutrophils 81.2 % (42.0-75.0); Hemoglobin 9.2 g/dL (12.0-16.0); Mean Corpuscular Hemoglobin 32.6 pg (27.0-31.0); Mean Platelet Volume 9.2 fL (7.4-10.4); Platelet Count 232 thou/uL (130-400); RBC Distribution Width 13.9 % (11.5-14.5); Red Blood Cell (RBC) Count 2.81 mill/uL (4.20-5.40); White Blood Cell (WBC) Count 11.8 thou/uL (4.8-10.8)
[2019-10-19 04:09] LABS: INR-International Normal Ratio 1.5; Prothrombin Time 18.1 SEC (12.0-14.7)
[2019-10-19 04:19] LABS: Anion Gap 19 mmol/L (10-20); BUN (Urea Nitrogen) 28 mg/dL (9.8-20.1); Calc. Creatinine Clearance 54 mL/min (70-130); Calcium 8.8 mg/dL (7.8-10.44); Carbon Dioxide 24 mmol/L (23-31); Chloride 99 mmol/L (98-107); Estimated GFR-MDRD 56; Glucose 97 mg/dL (83-110); Magnesium 1.7 mg/dL (1.6-2.6); Phosphorus 3.5 mg/dL (2.3-4.7); Potassium 3.1 mmol/L (3.5-5.1); Sodium 139 mmol/L (136-145)
[2019-10-19] MEDS ORDERED: Potassium Chloride 40 MEQ, Magnesium Sulfate 2 GM in Sodium Chloride 0.9% 250 ML 250 ML IVPB SCH (08:45)
[2019-10-19] MEDS: Famotidine/PF 20 mg/2ml Vial SLOW IVP SCH ×2 (08:48→20:41)
--- NOTE | 2019-10-19 09:29 | RAD ---
KUB: 10/19/2019 COMPARISON: Small bowel follow-through 10/18/2019 HISTORY: Nausea and vomiting, assess for obstruction FINDINGS: There is a comminuted obliquely oriented proximal right femur fracture status post ORIF. Th ere is a stable nasogastric tube. Postoperative clips in the right upper quadrant suggest prior cholecystectomy. There is gaseous distention of the stomach. There are gas-filled loops of dilated sm all bowel within the midabdomen, some of which continue to contain oral contrast media. Findings suggest high-grade small bowel obstruction or severe ileus. IMPRESSION: Persistent gas-filled dilated small bowel containing contrast media, evidence of severe i leus or high-grade small bowel obstruction.
[2019-10-19] MEDS ORDERED: Ibuprofen 600 MG TAB PO PRN (10:51)
--- NOTE | 2019-10-19 11:45 | PRG ---
DATE OF SERVICE: 10/19/2019 This is Suresh Molina PA-C dictating a report for Jadondomo Kala Carbajal DO. SUBJECTIVE: The patient is currently on the telemetry unit. She has been admitted for atrial fibrillation with a rapid ventricular response and was also noted to have a suspected partial small bowel obstruction. Overnight, her NG put out almost 2 L of fluid that would include a Gastrografin for her small bowel follow-through, which showed a suspected high-grade bowel obstruction. This morning upon our examination, the patient was awake, alert, and she denied any nausea or vomiting and she reports that she has been ambulating and been out of bed. OBJECTIVE: VITAL SIGNS: Temperature is 98.9, heart rate 111, blood pressure 135/63, respirations 18, and oxygen saturation 92% on room air. GENERAL: The patient is resting comfortably in bed. She is awake, alert, and oriented. Denies nausea or vomiting or abdominal pain. HEENT: Unremarkable. NG tube is in place and appears to be functioning. ABDOMEN: Soft, nontender with active bowel sounds. EXTREMITIES: Neurovascularly intact x4. LABORATORY FINDINGS: White blood cell count 11.8, hemoglobin 9.2, hematocrit 26.9, and platelets 232. Sodium 139, potassium 3.1, chloride 99, CO2 of 44, BUN 28, creatinine 0.96, glucose 97, magnesium 1.7, and phosphorus 3.5. Radiograph this morning shows dilated loops of small bowel and air throughout the colon. ASSESSMENT AND PLAN: 1. Possible small bowel obstruction, improving. 2. Atrial fibrillation with rapid ventricular response under treatment by Primary Team. PLAN: At the time of this dictation, we were notified that the patient started having loose bowel movements. So, we will discontinue her NG tube and start her on clear liquid diet. We will encourage out of bed and ambulation and we will re-evaluate her again in the morning. There appears to be no acute surgical indications at this time. This patient was evaluated this morning during rounds with Dr. Carbajal. Job ID: [id number]
--- NOTE | 2019-10-19 16:49 | PDOC.HOSPP ---
- Subjective Encounter Date: 10/19/19 Subjective: Nasogastric tube has been discontinued. The patient had a bowel movement. She is tolerating liquid diet. Stated that her pain is better. - Objective Vital Signs & Weight: Vital Signs (12 hours) Temp Pulse Pulse Resp BP BP Pulse Ox 10/19/19 15:22 99.5 F 119 H 25 H 134/60 95 10/19/19 11:12 116 H 131/61 10/19/19 10:45 98.0 F 119 H 18 131/61 91 L 10/19/19 10:30 125 H 143/62 H 10/19/19 08:31 98.9 F 126 H 24 H 157/69 H 93 L Weight Admit Weight 170 lb Weight 170 lb I&O: 10/18/19 10/19/19 10/20/19 06:59 06:59 06:59 Intake Total 703 Output Total 1975 250 Balance -1272 -250 Result Diagrams: 10/19/19 03:43 10/19/19 03:43 Hospitalist ROS - Medication Medications: Active Medications Generic Name Dose Route Start Last Admin Trade Name Freq PRN Reason Stop Dose Admin Enoxaparin Sodium 40 mg 10/18/19 21:00 10/18/19 22:16 Lovenox SC 40 mg 2100 VIKY Administration Famotidine 20 mg 10/18/19 21:00 10/19/19 08:48 Pepcid SLOW IVP 20 mg BID VIKY Administration Sodium Chloride 1,000 mls @ 100 mls/hr 10/18/19 15:00 10/19/19 03:02 Normal Saline 0.9% IV 1,000 mls .Q10H VIKY Administration Metoprolol Tartrate 5 mg 10/18/19 15:01 10/19/19 15:30 Lopressor IVP 5 mg Q6H PRN Administration HEART RATE >90 Ondansetron HCl 4 mg 10/18/19 14:48 10/18/19 17:07 Zofran IVP 4 mg Q6H PRN Administration Nausea/Vomiting - Exam General Appearance: NAD Eye: PERRL ENT: normocephalic atraumatic Neck: supple, no JVD Heart: RRR Respiratory: CTAB Gastrointestinal: soft, non-tender, non-distended, normal bowel sounds Neurological: cranial nerve grossly intact, no focal deficits Hosp A/P (1) SBO (small bowel obstruction) Code(s): K56.609 - UNSP INTESTNL OBST, UNSP TO PARTIAL VERSUS COMPLETE OBST Status: Acute (2) HTN (hypertension) Code(s): I10 - ESSENTIAL (PRIMARY) HYPERTENSION Status: Acute (3) COPD (chronic obstructive pulmonary disease) Status: Acute (4) Afib Code(s): I48.91 - UNSPECIFIED ATRIAL FIBRILLATION Status: Acute - Plan 10/18: Admitted for possible small bowel obstruction based on her symptoms and abdominal x-ray. N.p.o. Insert NG tube and start low intermittent suction. Check CT abdomen and pelvis with contrast. Consult the surgical team. DuoNeb every 6 hours as needed for COPD. Restart her rate control medications and warfarin for A. fib once she is able to take p.o. Check INR in the morning. 10/19: The patient is clinically improving. We will continue conservative management and advance diet as tolerated. If her condition continues to improve, we will plan to discharge her tomorrow.
[2019-10-19] MEDS: Metoprolol Tartrate 25 MG TAB PO SCH (20:41)
[2019-10-19] MEDS: Enoxaparin Sodium 40 MG/0.4 ML SYRINGE SC SCH (20:41)
--- NOTE | 2019-10-19 22:41 | PRG ---
DATE OF SERVICE: 10/19/2019 SUBJECTIVE: The patient was seen this evening during rounds. She was resting comfortably and asleep with no signs of acute distress. Nursing reported no acute events. OBJECTIVE: VITAL SIGNS: Temperature 98.5, pulse 110, respirations 16, oxygen saturation 92% on room air, and blood pressure 141/66. GENERAL: Well-appearing elderly female, lying in bed, asleep, with no signs of acute distress. PULMONARY: Equal chest rise and fall. No signs of acute respiratory distress. ASSESSMENT: 1. Ileus versus possible small bowel obstruction, improving. 2. Atrial fibrillation with rapid ventricular response, currently being managed by Primary Team. PLAN: Continue current clear liquid diet. NG tube has been discontinued. Continue IV fluids for now until the patient is tolerating diet. Continue encouraging ambulation and working with PT as much as possible. We will consider advancing her diet if she remained stable overnight. Job ID: [id number]
[2019-10-20] MEDS: Ondansetron PF 4 MG/2 ML Vial IVP PRN ×2 (00:13→21:33)
[2019-10-20] MEDS: Sodium Chloride 0.9% 1,000 ML IV SCH (07:15)
[2019-10-20] MEDS: Metoprolol Tartrate 25 MG TAB PO SCH ×2 (08:48→19:45)
[2019-10-20] MEDS: Acetaminophen 500 MG TAB PO PRN (09:02)
--- NOTE | 2019-10-20 09:13 | RAD ---
EXAM: CHEST ONE VIEW HISTORY: Small bowel obstruction. Nausea and vomiting. Evaluate for CHF. COMPARISON: None FINDINGS: The cardiac silhouette is enlarged. Pulmonary vasculature is borderline increased. No consolidation o r pleural effusion is identified. The osseous structures are intact. Vascular calcifications are seen in the thoracic aorta. Surgical clips overlie the right upper quadrant. IMPRESSION: Cardiomegaly with borderline pulmonary vascular congestion. Findings are suggestive of mild CHF.
[2019-10-20] MEDS ORDERED: Furosemide 40 MG/4 ML VIAL SLOW IVP SCH (09:30)
[2019-10-20] MEDS ORDERED: Sodium Chloride 0.9% 1,000 ML IV SCH (09:30)
[2019-10-20 10:06] LABS: Troponin I 0.018 ng/mL (< 0.028)
[2019-10-20 10:08] LABS: Anion Gap 12 mmol/L (10-20); BUN (Urea Nitrogen) 27 mg/dL (9.8-20.1); Calc. Creatinine Clearance 54 mL/min (70-130); Calcium 8.3 mg/dL (7.8-10.44); Carbon Dioxide 26 mmol/L (23-31); Chloride 102 mmol/L (98-107); Estimated GFR-MDRD 56; Glucose 110 mg/dL (83-110); Magnesium 1.8 mg/dL (1.6-2.6); Potassium 3.1 mmol/L (3.5-5.1); Sodium 137 mmol/L (136-145)
--- NOTE | 2019-10-20 11:19 | PDOC.GSPN ---
Surgery Progress Note: Subj - Subjective Narrative: Pt is a 84yo female with history of A fib, COPD, HTN being followed for small bowel obstruction, which is improving. Patient had 5 BM yesterday and is tolerating clear liquids. NG tube was d/c. Today the patient reports feeling fatigued and not able to walk around as much. Denies abdominal pain, nausea, vomiting, chest pain. Surgery Progress Note: Obj - Vital signs Vital signs: Vital Signs - Most Recent Temp Pulse Resp BP Pulse Ox 98.4 F 109 H 20 140/64 92 L 10/20/19 07:37 10/20/19 07:37 10/20/19 07:37 10/20/19 07:37 10/20/19 07:37 - Physical Exam General: other (appears tired, mild respiratory distress speaking in short sentences, audible wheezes) Cardiovascular: no murmur Respiratory: wheezing, other (bilateral wheezes in all lung phillips, tachypnic) Abdomen: soft, non tender, nondistended Surgery Progress Note: Results - Labs Result Diagrams: 10/19/19 03:43 10/20/19 09:19 Lab results: Laboratory Results - last 24 hr 10/20/19 10/20/19 10/20/19 09:19 09:19 09:19 Sodium 137 Potassium 3.1 L Chloride 102 Carbon Dioxide 26 Anion Gap 12 BUN 27 H Creatinine 0.96 Estimated GFR (MDRD) 56 Glucose 110 Calcium 8.3 Phosphorus 2.0 L Magnesium 1.8 Troponin I 0.018 B-Natriuretic Peptide 408.0 H Surgery Progress Note: A/P - Plan Plan: 84 yo female with history of HTN, COPD, a fib being following for small bowel obstruction which is resolving now with increased fatigue, bilateral wheezes, and mild respiratory distress. Patient is having BM, passing flatus and tolerating clear liquids, we will advance diet to regular diet and monitor. Concern for possible volume overload, CHF exacerbation, COPD exacerbation, or worsening of a fib given the patient's increasing fatigue, worsening wheezes, and mild respiratory distress. O2 sat at 92 on RA and patient received 1700cc of IVF yesterday. Will evaluate for possible CHF exacerbation with CXR, BNP, Troponin x1, EKG and provide a 1x dose of Lasix 40mg IV to help with diuresis. Plan: -Advance diet to regular -Potassium replacement -Phosphate replacement -Lasix 40mg IV x1 -BNP, Trop x1, EKG -d/c IVF -Nasal cannula PRN
--- NOTE | 2019-10-20 13:03 | PDOC.HOSPP ---
- Subjective Encounter Date: 10/20/19 Subjective: Her pain has improved. Bowel movement reported. She is short of breath. - Objective Vital Signs & Weight: Vital Signs (12 hours) Temp Pulse Resp BP BP Pulse Ox 10/20/19 11:26 97.8 F 116 H 21 H 130/61 98 10/20/19 07:37 98.4 F 109 H 20 140/64 92 L 10/20/19 04:00 99.0 F 104 H 14 137/61 92 L Weight Admit Weight 170 lb Weight 170 lb I&O: 10/19/19 10/20/19 10/21/19 06:59 06:59 06:59 Intake Total 703 3175 Output Total 1975 800 Balance -8922 1233 Result Diagrams: 10/19/19 03:43 10/20/19 09:19 Hospitalist ROS - Medication Medications: Active Medications Generic Name Dose Route Start Last Admin Trade Name Freq PRN Reason Stop Dose Admin Acetaminophen 500 mg 10/19/19 10:51 10/20/19 09:02 Tylenol PO 500 mg Q4H PRN Administration Headache/Fever or Pain Enoxaparin Sodium 40 mg 10/18/19 21:00 10/19/19 20:41 Lovenox SC 40 mg 2100 VIKY Administration Ibuprofen 600 mg 10/19/19 10:51 10/20/19 00:13 Motrin PO 600 mg Q8H PRN Administration Pain Metoprolol Tartrate 25 mg 10/19/19 21:00 10/20/19 08:48 Lopressor PO 25 mg BID VIKY Administration Ondansetron HCl 4 mg 10/18/19 14:48 10/20/19 00:13 Zofran IVP 4 mg Q6H PRN Administration Nausea/Vomiting - Exam General Appearance: NAD, awake alert Eye: PERRL ENT: normocephalic atraumatic, no oropharyngeal lesions Neck: supple Heart: RRR, no murmur, no gallops, no rubs, normal peripheral pulses Respiratory: tachypneic (Bibasillar crackles present) Gastrointestinal: soft, non-tender, non-distended, normal bowel sounds Neurological: cranial nerve grossly intact, no focal deficits Hosp A/P (1) Acute CHF Code(s): I50.9 - HEART FAILURE, UNSPECIFIED Status: Acute (2) SBO (small bowel obstruction) Code(s): K56.609 - UNSP INTESTNL OBST, UNSP TO PARTIAL VERSUS COMPLETE OBST Status: Acute (3) HTN (hypertension) Code(s): I10 - ESSENTIAL (PRIMARY) HYPERTENSION Status: Acute (4) COPD (chronic obstructive pulmonary disease) Status: Acute (5) Afib Code(s): I48.91 - UNSPECIFIED ATRIAL FIBRILLATION Status: Acute - Plan 10/18: Admitted for possible small bowel obstruction based on her symptoms and abdominal x-ray. N.p.o. Insert NG tube and start low intermittent suction. Check CT abdomen and pelvis with contrast. Consult the surgical team. DuoNeb every 6 hours as needed for COPD. Restart her rate control medications and warfarin for A. fib once she is able to take p.o. Check INR in the morning. 10/19: The patient is clinically improving. We will continue conservative management and advance diet as tolerated. If her condition continues to improve, we will plan to discharge her tomorrow. 10/20: SBO resolved. She has signs of CHF. SOB, Bibasillar crackles on auscultation, Pulm edema on CXR, Elevated BNP. DC IVF Low salt diet with 1500cc fluid restriction Strict I&O Bumex 1 g IV BID Transthoracic ECHO
[2019-10-20] MEDS ORDERED: Potassium Phosphate 30 MMOL in Sodium Chloride 0.9% 250 ML 250 ML IVPB SCH (14:15)
[2019-10-20] MEDS ORDERED: Magnesium 2 GM/50 ML 2 GM in Premix Bag 1 BAG IVPB SCH (14:30)
[2019-10-20] MEDS: Bumetanide 1 MG/4 ML VIAL IVP SCH (14:48)
[2019-10-20] MEDS ORDERED: Potassium Phosphate 30 MMOL, Magnesium Sulfate 2 GM in Sodium Chloride 0.9% 250 ML 250 ML IVPB SCH (15:00)
[2019-10-20] MEDS: Enoxaparin Sodium 40 MG/0.4 ML SYRINGE SC SCH (19:45)
[2019-10-20] MEDS: Famotidine/PF 20 mg/2ml Vial SLOW IVP SCH (20:14)
[2019-10-20] MEDS ORDERED: Lidocaine 2% Viscous Solution 10 ML, Aluminum & Magnesium Hydroxide 30 ML SSW SCH (20:15)
--- NOTE | 2019-10-21 00:40 | PRG ---
DATE OF SERVICE: 10/20/2019 SUBJECTIVE: Patient was seen this evening during rounds. She was resting comfortably and asleep with no signs of acute distress. Nursing reported no acute events. Patient did receive Lasix today for CHF. OBJECTIVE: VITAL SIGNS: Temperature 98.2, pulse 102, respirations 20, oxygen saturation 99% on 2 L nasal cannula, and blood pressure 137/60. GENERAL: Well-appearing elderly female, lying in bed, asleep with no signs of acute distress. PULMONARY: Equal chest rise and fall. No signs of acute respiratory distress. ASSESSMENT: 1. Ileus versus possible small bowel obstruction, resolving. 2. Atrial fibrillation with rapid ventricular response, currently being managed by primary team. PLAN: Continue current low-sodium diet. Continue Physical and Occupational Therapy. Continue to encourage ambulation with PT as much as possible. We will follow up how much the patient diuresed tomorrow. AFib is not currently rate controlled. We will continue to allow. Primary team to manage that condition. Job ID: [id number]
[2019-10-21 04:38] LABS: INR-International Normal Ratio 1.5; Prothrombin Time 17.9 SEC (12.0-14.7)
[2019-10-21 04:45] LABS: Anion Gap 14 mmol/L (10-20); BUN (Urea Nitrogen) 23 mg/dL (9.8-20.1); Calc. Creatinine Clearance 44 mL/min (70-130); Calcium 8.1 mg/dL (7.8-10.44); Carbon Dioxide 27 mmol/L (23-31); Chloride 99 mmol/L (98-107); Estimated GFR-MDRD 43; Glucose 117 mg/dL (83-110); Magnesium 1.9 mg/dL (1.6-2.6); Sodium 137 mmol/L (136-145)
[2019-10-21 04:48] LABS: Phosphorus 3.5 mg/dL (2.3-4.7)
[2019-10-21 06:06] LABS: Band 17 % (5-11); Eosinophils 2 % (0-10); Hemoglobin 8.6 g/dL (12.0-16.0); Lymphocytes 15 % (21-51); MDiff Complete? YES; Mean Corpuscular HGB CONC 33.5 g/dL (32.0-36.0); Mean Corpuscular Hemoglobin 31.8 pg (27.0-31.0); Mean Platelet Volume 8.5 fL (7.4-10.4); Monocytes 3 % (0-10); Neutrophil 63 % (42-75); Platelet Count 275 thou/uL (130-400); RBC Distribution Width 13.4 % (11.5-14.5); Red Blood Cell (RBC) Count 2.71 mill/uL (4.20-5.40); White Blood Cell (WBC) Count 12.9 thou/uL (4.8-10.8)
[2019-10-21] MEDS ORDERED: Potassium Chloride 20 MEQ TAB PO SCH ×2 (07:15→10:45)
[2019-10-21] MEDS: Bumetanide 1 MG/4 ML VIAL IVP SCH ×2 (07:24→13:42)
[2019-10-21] MEDS: Famotidine/PF 20 mg/2ml Vial SLOW IVP SCH (08:21)
[2019-10-21] MEDS: Metoprolol Tartrate 25 MG TAB PO SCH (08:21)
[2019-10-21] MEDS: Acetaminophen 500 MG TAB PO PRN (08:30)
--- NOTE | 2019-10-21 10:48 | PDOC.HOSPP ---
- Subjective Encounter Date: 10/21/19 Subjective: The patient was seen and examined. She is complaining of nausea and vomiting. She is tolerating liquid diet and had a bowel movement earlier today. Her rate appears to be slightly uncontrolled today. Her breathing is better than yesterday. - Objective Vital Signs & Weight: Vital Signs (12 hours) Temp Pulse Resp BP Pulse Ox 10/21/19 08:00 100 F H 101 H 17 135/62 100 10/21/19 04:00 97.7 F 112 H 18 135/61 100 Weight Admit Weight 170 lb Weight 170 lb I&O: 10/20/19 10/21/19 10/22/19 06:59 06:59 06:59 Intake Total 3175 1270 Output Total 800 1550 Balance 2375 -280 Result Diagrams: 10/21/19 04:13 10/21/19 04:13 Hospitalist ROS - Medication Medications: Active Medications Generic Name Dose Route Start Last Admin Trade Name Freq PRN Reason Stop Dose Admin Acetaminophen 500 mg 10/19/19 10:51 10/21/19 08:30 Tylenol PO 500 mg Q4H PRN Administration Headache/Fever or Pain Bumetanide 1 mg 10/20/19 14:00 10/21/19 07:24 Bumex IVP 1 mg 0600,1400 VIKY Administration Enoxaparin Sodium 40 mg 10/18/19 21:00 10/20/19 19:45 Lovenox SC 40 mg 2100 VIKY Administration Ibuprofen 600 mg 10/19/19 10:51 10/20/19 00:13 Motrin PO 600 mg Q8H PRN Administration Pain Ondansetron HCl 4 mg 10/18/19 14:48 10/20/19 21:33 Zofran IVP 4 mg Q6H PRN Administration Nausea/Vomiting Sodium Chloride 10 ml 10/20/19 21:00 10/21/19 08:31 Flush - Normal Saline IVF 10 ml Q12HR VIKY Administration Hosp A/P (1) Acute CHF Code(s): I50.9 - HEART FAILURE, UNSPECIFIED Status: Acute (2) SBO (small bowel obstruction) Code(s): K56.609 - UNSP INTESTNL OBST, UNSP TO PARTIAL VERSUS COMPLETE OBST Status: Acute (3) HTN (hypertension) Code(s): I10 - ESSENTIAL (PRIMARY) HYPERTENSION Status: Acute (4) COPD (chronic obstructive pulmonary disease) Status: Acute (5) Afib Code(s): I48.91 - UNSPECIFIED ATRIAL FIBRILLATION Status: Acute - Plan 10/18: Admitted for possible small bowel obstruction based on her symptoms and abdominal x-ray. N.p.o. Insert NG tube and start low intermittent suction. Check CT abdomen and pelvis with contrast. Consult the surgical team. DuoNeb every 6 hours as needed for COPD. Restart her rate control medications and warfarin for A. fib once she is able to take p.o. Check INR in the morning. 10/19: The patient is clinically improving. We will continue conservative management and advance diet as tolerated. If her condition continues to improve, we will plan to discharge her tomorrow. 10/20: SBO resolved. She has signs of CHF. SOB, Bibasillar crackles on auscultation, Pulm edema on CXR, Elevated BNP. DC IVF Low salt diet with 1500cc fluid restriction Strict I&O Bumex 1 g IV BID Transthoracic ECHO 10/21: Negative fluid balance over the past 24 hours. Continue IV Bumex and fluid restriction. Her creatinine level slightly elevated since yesterday. Continue to monitor kidney function and discontinue ibuprofen. Change metoprolol tartrate to metoprolol succinate 25 mg orally twice daily for better rate control. Follow results of echocardiogram. The patient appears to be wheezing on examination. She has a long history of smoking and COPD. This could be a sign of exacerbation. Start prednisone 40 mg orally daily and DuoNeb every 4 hours scheduled while awake. Potassium has been replaced. SBO management per surgical team.
--- NOTE | 2019-10-21 11:22 | RAD ---
Frontal radiograph chest Upright and supine frontal imaging of abdomen and pelvis: 10/21/2019 HISTORY: Vomiting FINDINGS: Frontal imaging of the chest demonstrates blunting of the costophrenic angle on the left beyer ggesting small volume left pleural fluid and/or pleural thickening. There is diffuse increased linear interstitial density with pulmonary hyperinflation suggesting chronic change. Question a histo ry of COPD. There is atherosclerotic ulceration the aortic arch. Upright imaging demonstrates no free intraperitoneal air. Clips in right upper quadrant suggest prior cholecystectomy. Upright imagin g demonstrates air-fluid levels within gas-filled dilated small bowel within the central abdomen. Findings are suspicious for small bowel obstruction or ileus. When compared to the 10/19/2019 examinat ion the degree of small bowel prominence has not significantly changed. Recommend correlation with CT examination. IMPRESSION: Gas-filled dilated small bowel with air-fluid levels in the mid abdomen suggesting small bowel obstruction or ileus. CT advised.
[2019-10-21] MEDS ORDERED: predniSONE 20 MG TAB PO SCH (12:00)
--- NOTE | 2019-10-21 12:28 | PDOC.GSPN ---
Surgery Progress Note: Subj - Subjective Narrative: Pt is a 84 YO female with history of a fib, COPD being followed by surgical team for small bowel obstruction. This morning patient had 1 episode of yellow- clear emesis associated with heartburn and excessive belching. Patient reports heartburn throughout hospitalization, reports slight improvement with pepcid. Denies abdominal pain. Patient reports passing flatus and 2 BM yesterday. She was on regular diet yesterday and was able to tolerate it until 1 episode of emesis this AM. Shortness of breath slightly improved from yesterday. She denies chest pain, anxiety, diaphoresis. Surgery Progress Note: Obj - Vital signs Vital signs: Vital Signs - Most Recent Temp Pulse Resp BP Pulse Ox 100 F H 101 H 17 135/62 100 10/21/19 08:00 10/21/19 08:00 10/21/19 08:00 10/21/19 08:00 10/21/19 08:00 - Physical Exam General: no distress, other Neck: no mariya distention Cardiovascular: irregular rate (irregularly irregular) Respiratory: wheezing (bilateral wheezes, no rhonchi) Abdomen: soft, non tender, nondistended, positive bowel sounds, other (no guarding or ridigity) Additional exam: No pedal edema. Surgery Progress Note: Results - Labs Result Diagrams: 10/21/19 04:13 10/21/19 04:13 Lab results: Laboratory Results - last 24 hr 10/21/19 10/21/19 10/21/19 04:13 04:13 04:13 WBC 12.9 H RBC 2.71 L Hgb 8.6 L Hct 25.7 L MCV 95.0 MCH 31.8 H MCHC 33.5 RDW 13.4 Plt Count 275 MPV 8.5 Neutrophils % (Manual) 63 Band Neuts % (Manual) 17 H Lymphocytes % (Manual) 15 L Monocytes % (Manual) 3 Eosinophils % (Manual) 2 PT 17.9 H INR 1.5 Sodium 137 Potassium 3.0 L Chloride 99 Carbon Dioxide 27 Anion Gap 14 BUN 23 H Creatinine 1.19 H Estimated GFR (MDRD) 43 Glucose 117 H Calcium 8.1 Phosphorus Magnesium 1.9 10/21/19 04:13 WBC RBC Hgb Hct MCV MCH MCHC RDW Plt Count MPV Neutrophils % (Manual) Band Neuts % (Manual) Lymphocytes % (Manual) Monocytes % (Manual) Eosinophils % (Manual) PT INR Sodium Potassium Chloride Carbon Dioxide Anion Gap BUN Creatinine Estimated GFR (MDRD) Glucose Calcium Phosphorus 3.5 Magnesium Surgery Progress Note: A/P - Plan Plan: Patient is a 84 YO female with history of a fib, COPD being followed by surgical service for small bowel obstruction. Patient had 1 episode of NBNB emesis associated with GERD, patient did not eat breakfast this morning. Patient denies abdominal pain and is passing gas and having bowel movements. Vital signs stable and no evidence of peritonitis on exam. Will evaluate further with 3 view abdominal x ray and place patient on PPI therapy. Acute abdomen series shows dilated loops of small bowel with air fluid level without any clear transition point and without free air under diaphragm. NBNB emesis this morning may be related to hypersecretion of gastric acid vs ileus. Will continue to monitor and encourage patient to ambulate more. Consider switch to PPI to help with GERD symptoms. -3 view abdomen xray -Add PPI to help with GERD -Increase ambulation -Continue regular diet Patient was seen and evaluated by Dr. Carbajal this morning. Plan was discussed and all were in agreement.
[2019-10-21] MEDS ORDERED: Warfarin Sodium 5 MG TAB PO SCH (17:00)
[2019-10-21] MEDS: Potassium Chloride 20 MEQ TAB PO SCH (17:12)
[2019-10-21] MEDS: Enoxaparin Sodium 40 MG/0.4 ML SYRINGE SC SCH ×2 (20:53→21:06)
--- NOTE | 2019-10-22 01:04 | PRG ---
DATE OF SERVICE: 10/21/2019 SUBJECTIVE: The patient was seen this evening in bed. During evening rounds, she was lying in bed comfortably and asleep with no signs of acute distress. Nursing reported that the patient had one bout of emesis this morning and electively had not eaten anything since that time, but the patient still has a diet ordered. We encouraged her to start with liquids and advance as tolerated this evening. At the time of my evaluation, the patient appeared to be in no signs of acute distress. OBJECTIVE: VITAL SIGNS: Temperature 98, pulse 98, respirations 20, oxygen saturation 100% on 2 L nasal cannula, blood pressure 134/60. GENERAL: Well-appearing elderly female, lying in bed, asleep with no signs of acute distress. PULMONARY: Equal chest rise and fall. No signs of acute respiratory distress. ASSESSMENT: 1. Ileus versus small bowel obstruction, improving. 2. Atrial fibrillation, now rate controlled. 3. History of hypertension, chronic obstructive pulmonary disease, atrial fibrillation on Coumadin, and hypothyroidism. PLAN: Continue current heart healthy diet. It is imperative that the patient works with Physical Therapy multiple times a day and ambulate as well as sits up in the chair as much as possible. If she does not continue to move, she will develop an ileus again. Hospitalist team has restarted the patient's Coumadin. They are also managing her atrial fibrillation. Job ID: [id number]
[2019-10-22] MEDS: Melatonin 3 MG TAB PO PRN ×2 (01:25→20:38)
[2019-10-22 04:08] LABS: INR-International Normal Ratio 1.3; Prothrombin Time 16.4 SEC (12.0-14.7)
[2019-10-22 04:20] LABS: Anion Gap 14 mmol/L (10-20); BUN (Urea Nitrogen) 23 mg/dL (9.8-20.1); Calc. Creatinine Clearance 49 mL/min (70-130); Calcium 8.2 mg/dL (7.8-10.44); Carbon Dioxide 28 mmol/L (23-31); Chloride 98 mmol/L (98-107); Estimated GFR-MDRD 50; Glucose 116 mg/dL (83-110); Potassium 4.4 mmol/L (3.5-5.1); Sodium 136 mmol/L (136-145)
[2019-10-22 04:55] LABS: Band 8 % (5-11); Eosinophils 1 % (0-10); Hemoglobin 7.9 g/dL (12.0-16.0); Lymphocytes 15 % (21-51); MDiff Complete? YES; Mean Corpuscular HGB CONC 33.5 g/dL (32.0-36.0); Mean Corpuscular Volume 95.4 fL (78.0-98.0); Mean Platelet Volume 8.5 fL (7.4-10.4); Metamyelocyte 1 % (0-0); Monocytes 3 % (0-10); Myelocyte 1 % (0-0); Neutrophil 71 % (42-75); Platelet Count 260 thou/uL (130-400); Platelet Morphology Comment Appears Adequate; Polychromasia SLIGHT = 2-3 cells (100X) (0-2/hpf); RBC Distribution Width 13.3 % (11.5-14.5); Red Blood Cell (RBC) Count 2.46 mill/uL (4.20-5.40); Toxic Granulation SLIGHT; White Blood Cell (WBC) Count 8.8 thou/uL (4.8-10.8)
[2019-10-22] MEDS: Bumetanide 1 MG/4 ML VIAL IVP SCH ×2 (05:59→15:25)
[2019-10-22] MEDS: Potassium Chloride 20 MEQ TAB PO SCH ×3 (08:06→20:38)
[2019-10-22] MEDS: predniSONE 20 MG TAB PO SCH (08:06)
[2019-10-22] MEDS: Famotidine/PF 20 mg/2ml Vial SLOW IVP SCH (08:07)
[2019-10-22] MEDS ORDERED: Warfarin Sodium 5 MG TAB PO SCH (09:13)
[2019-10-22] MEDS ORDERED: Potassium Chloride 20 MEQ TAB PO SCH ×2 (09:14→09:30)
--- NOTE | 2019-10-22 14:24 | PDOC.HOSPP ---
- Subjective Encounter Date: 10/22/19 Subjective: The patient's respiratory status improved since yesterday BM reported Participated with PT - Objective Vital Signs & Weight: Vital Signs (12 hours) Temp Pulse Resp BP Pulse Ox 10/22/19 11:12 97.6 F 103 H 19 119/56 L 98 10/22/19 07:53 98.2 F 106 H 19 126/56 L 99 10/22/19 07:43 85 L 10/22/19 07:42 108 H 20 10/22/19 04:00 98.6 F 104 H 22 H 106/52 L 98 Weight Admit Weight 170 lb Weight 177 lb 12.8 oz I&O: 10/21/19 10/22/19 10/23/19 06:59 06:59 06:59 Intake Total 1270 360 Output Total 1550 1000 Balance -280 -640 Result Diagrams: 10/22/19 03:43 10/22/19 03:43 Hospitalist ROS - Medication Medications: Active Medications Generic Name Dose Route Start Last Admin Trade Name Freq PRN Reason Stop Dose Admin Acetaminophen 500 mg 10/19/19 10:51 10/21/19 08:30 Tylenol PO 500 mg Q4H PRN Administration Headache/Fever or Pain Albuterol/Ipratropium 3 ml 10/21/19 11:00 10/22/19 12:12 Duoneb NEB Not Given [id number] VIKY Bumetanide 1 mg 10/20/19 14:00 10/22/19 05:59 Bumex IVP 1 mg 0600,1400 VIKY Administration Enoxaparin Sodium 40 mg 10/18/19 21:00 10/21/19 21:06 Lovenox SC 40 mg 2100 VIKY Administration Famotidine 20 mg 10/22/19 09:00 10/22/19 08:07 Pepcid SLOW IVP 20 mg DAILY VIKY Administration Melatonin 3 mg 10/21/19 21:36 10/22/19 01:25 Melatonin PO 3 mg HS PRN Administration Insomnia Metoprolol Succinate 25 mg 10/21/19 21:00 10/22/19 08:06 Toprol Xl PO 25 mg BID VIKY Administration Ondansetron HCl 4 mg 10/18/19 14:48 10/20/19 21:33 Zofran IVP 4 mg Q6H PRN Administration Nausea/Vomiting Prednisone 40 mg 10/22/19 08:00 10/22/19 08:06 Prednisone PO 40 mg QAM-WM VIKY Administration Sodium Chloride 10 ml 10/20/19 21:00 10/22/19 08:07 Flush - Normal Saline IVF 10 ml Q12HR VIKY Administration Sodium Chloride 10 ml 10/20/19 09:25 10/22/19 06:00 Flush - Normal Saline IVF 10 ml PRN PRN Administration Saline Flush - Exam General Appearance: NAD, awake alert Eye: PERRL, anicteric sclera ENT: normocephalic atraumatic, no oropharyngeal lesions, moist mucosa Neck: supple, symmetric, no JVD Heart: RRR, no murmur, no gallops, no rubs, normal peripheral pulses Respiratory: CTAB, no wheezes, no rales, no ronchi, normal chest expansion Gastrointestinal: soft, non-tender, non-distended, normal bowel sounds Skin: normal turgor, no lesions Neurological: cranial nerve grossly intact, no focal deficits Hosp A/P (1) Acute CHF Code(s): I50.9 - HEART FAILURE, UNSPECIFIED Status: Acute (2) SBO (small bowel obstruction) Code(s): K56.609 - UNSP INTESTNL OBST, UNSP TO PARTIAL VERSUS COMPLETE OBST Status: Acute (3) HTN (hypertension) Code(s): I10 - ESSENTIAL (PRIMARY) HYPERTENSION Status: Acute (4) COPD (chronic obstructive pulmonary disease) Status: Acute (5) Afib Code(s): I48.91 - UNSPECIFIED ATRIAL FIBRILLATION Status: Acute - Plan Negative fluid balance over the past 24 hours. Continue IV Bumex and fluid restriction. Her creatinine level IMPROVED elevated since yesterday. Continue to monitor kidney function and discontinue ibuprofen. Afib rate controlled on Toprolol XL INR remains subtherapeutic. Increase warfarin to 8 mg daily. Echo with EF 40-45% Wheezing resolved. Continue nebs and corticosteroids SBO resolved
[2019-10-22] MEDS: Warfarin Sodium 2 MG TAB PO SCH (18:38)
--- NOTE | 2019-10-22 20:02 | PRG ---
DATE OF SERVICE: 10/22/2019 SUBJECTIVE: Ms. Shields is an 84-year-old woman whom I seen to exclude acute small-bowel obstruction. The patient reports no abdominal pain today. She did have an emesis yesterday, but has had none today. She has tolerated diet well. She is having bowel movements. Her stool is beginning to firm up. She does pass flatus. Her voice is stronger today. She admits to more energy and was able to ambulate to the door and back twice. OBJECTIVE: VITAL SIGNS: Today include blood pressure 119/56, pulse 103, respiratory rate is 19, temperature is 97.6 degrees Fahrenheit, and oxygen saturation 98% on room air. ABDOMEN: Soft, nontender, and nondistended. She clearly has no peritoneal signs on examination. LABORATORY FINDINGS: Today include a CBC with normal white blood cell count of 8800, hemoglobin and hematocrit of 7.9 and 23.5 respectively. Platelet count 260,000. Differential counts; 71% neutrophils, 8 bands, 15 lymphocytes, 3 monocytes, and 1 eosinophil. Metabolic profile; sodium 136, potassium is 4.4, chloride is 98, bicarb is 28, BUN 23, creatinine is 1.06, and glucose is 116. IMPRESSION: Resolved acute small-bowel obstruction. Diet and activity will be advanced. No further surgical indication for this patient at this time. General Surgery with sign off and be available to re-evaluate the patient on demand. Job ID: [id number]
[2019-10-22] MEDS: Acetaminophen 500 MG TAB PO PRN (20:38)
[2019-10-22] MEDS: Enoxaparin Sodium 40 MG/0.4 ML SYRINGE SC SCH (20:38)
[2019-10-23 04:17] LABS: INR-International Normal Ratio 1.3; Prothrombin Time 16.1 SEC (12.0-14.7)
[2019-10-23 04:25] LABS: Anion Gap 14 mmol/L (10-20); BUN (Urea Nitrogen) 25 mg/dL (9.8-20.1); Calc. Creatinine Clearance 53 mL/min (70-130); Calcium 8.6 mg/dL (7.8-10.44); Carbon Dioxide 30 mmol/L (23-31); Chloride 95 mmol/L (98-107); Estimated GFR-MDRD 51; Glucose 137 mg/dL (83-110); Potassium 4.6 mmol/L (3.5-5.1); Sodium 134 mmol/L (136-145)
[2019-10-23 04:53] LABS: Band 13 % (5-11); Hemoglobin 8.8 g/dL (12.0-16.0); Lymphocytes 6 % (21-51); MDiff Complete? YES; Mean Corpuscular HGB CONC 34.4 g/dL (32.0-36.0); Mean Corpuscular Hemoglobin 32.5 pg (27.0-31.0); Mean Corpuscular Volume 94.6 fL (78.0-98.0); Mean Platelet Volume 8.7 fL (7.4-10.4); Metamyelocyte 1 % (0-0); Monocytes 4 % (0-10); Myelocyte 2 % (0-0); Neutrophil 74 % (42-75); Nucleated RBC 1 % (0); Platelet Count 317 thou/uL (130-400); Platelet Morphology Comment Appears Adequate; Polychromasia SLIGHT = 2-3 cells (100X) (0-2/hpf); RBC Distribution Width 13.8 % (11.5-14.5); Toxic Granulation SLIGHT; White Blood Cell (WBC) Count 13.5 thou/uL (4.8-10.8)
[2019-10-23] MEDS: Bumetanide 1 MG/4 ML VIAL IVP SCH ×2 (05:36→13:38)
[2019-10-23] MEDS: predniSONE 20 MG TAB PO SCH (09:26)
[2019-10-23] MEDS: Potassium Chloride 20 MEQ TAB PO SCH ×4 (09:26→21:01)
[2019-10-23] MEDS: Famotidine/PF 20 mg/2ml Vial SLOW IVP SCH (09:27)
--- NOTE | 2019-10-23 14:00 | PDOC.HOSPP ---
- Subjective Encounter Date: 10/23/19 Subjective: Feels better Sitting in the chair and saturating well on 1.5L Participating in PT No BM today - Objective Vital Signs & Weight: Vital Signs (12 hours) Temp Pulse Resp BP Pulse Ox 10/23/19 11:46 98.2 F 80 16 133/63 96 10/23/19 11:11 83 16 10/23/19 07:50 98.2 F 101 H 14 134/63 96 10/23/19 07:18 98 10/23/19 07:17 107 H 16 10/23/19 04:00 98.4 F 101 H 18 154/67 H 98 Weight Admit Weight 170 lb Weight 177 lb I&O: 10/22/19 10/23/19 10/24/19 06:59 06:59 06:59 Intake Total 360 840 Output Total 1000 1750 Balance -640 -910 Result Diagrams: 10/23/19 03:34 10/23/19 03:34 Hospitalist ROS - Medication Medications: Active Medications Generic Name Dose Route Start Last Admin Trade Name Freq PRN Reason Stop Dose Admin Acetaminophen 500 mg 10/19/19 10:51 10/22/19 20:38 Tylenol PO 500 mg Q4H PRN Administration Headache/Fever or Pain Albuterol/Ipratropium 3 ml 10/21/19 11:00 10/23/19 11:11 Duoneb NEB 3 ml [id number] VIKY Administration Bumetanide 1 mg 10/20/19 14:00 10/23/19 13:38 Bumex IVP 1 mg 0600,1400 VIKY Administration Enoxaparin Sodium 40 mg 10/18/19 21:00 10/22/19 20:38 Lovenox SC 40 mg 2100 VIKY Administration Famotidine 20 mg 10/22/19 09:00 10/23/19 09:27 Pepcid SLOW IVP 20 mg DAILY VIKY Administration Melatonin 3 mg 10/21/19 21:36 10/22/19 20:38 Melatonin PO 3 mg HS PRN Administration Insomnia Metoprolol Succinate 50 mg 10/23/19 09:00 10/23/19 10:42 Toprol Xl PO Not Given BID VIKY Ondansetron HCl 4 mg 10/18/19 14:48 10/20/19 21:33 Zofran IVP 4 mg Q6H PRN Administration Nausea/Vomiting Potassium Chloride 20 meq 10/22/19 17:00 10/23/19 09:26 K-Dur PO 20 meq BID-WM VIKY Administration Potassium Chloride 20 meq 10/22/19 21:00 10/23/19 09:28 K-Dur PO Not Given BID VIKY Prednisone 40 mg 10/22/19 08:00 10/23/19 09:26 Prednisone PO 40 mg QAM-WM VIKY Administration Sodium Chloride 10 ml 10/20/19 21:00 10/23/19 09:33 Flush - Normal Saline IVF 10 ml Q12HR VIKY Administration Sodium Chloride 10 ml 10/20/19 09:25 10/23/19 05:37 Flush - Normal Saline IVF 10 ml PRN PRN Administration Saline Flush Warfarin Sodium 8 mg 10/22/19 17:00 10/22/19 18:38 Coumadin PO 8 mg 1700 VIKY Administration - Exam General Appearance: NAD ENT: normocephalic atraumatic Neck: supple, no JVD Heart: no murmur, no gallops, no rubs, irregular Respiratory: CTAB, no wheezes, no rales Gastrointestinal: soft, non-tender, non-distended Neurological: cranial nerve grossly intact, no focal deficits Hosp A/P (1) Acute CHF Code(s): I50.9 - HEART FAILURE, UNSPECIFIED Status: Acute (2) SBO (small bowel obstruction) Code(s): K56.609 - UNSP INTESTNL OBST, UNSP TO PARTIAL VERSUS COMPLETE OBST Status: Acute (3) HTN (hypertension) Code(s): I10 - ESSENTIAL (PRIMARY) HYPERTENSION Status: Acute (4) COPD (chronic obstructive pulmonary disease) Status: Acute (5) Afib Code(s): I48.91 - UNSPECIFIED ATRIAL FIBRILLATION Status: Acute - Plan Negative fluid balance over the past 24 hours. Continue IV Bumex and fluid restriction. Her creatinine level continues to improve Afib rate controlled on Toprolol XL INR remains subtherapeutic. Continue warfarin 8mg daily. Will discuss transition to DOAC. Echo with EF 40-45% Wheezing resolved. Continue nebs and corticosteroids SBO resolved Likely to be DCed tomorrow
[2019-10-23] MEDS: Mag-Al 1200 mg/1200 mg/30 ML UDCUP PO PRN (15:52)
[2019-10-23] MEDS: Warfarin Sodium 2 MG TAB PO SCH (17:38)
[2019-10-23] MEDS: Melatonin 3 MG TAB PO PRN (20:56)
[2019-10-23] MEDS: Enoxaparin Sodium 40 MG/0.4 ML SYRINGE SC SCH (21:01)
[2019-10-24 04:35] LABS: INR-International Normal Ratio 1.5; Prothrombin Time 17.8 SEC (12.0-14.7)
[2019-10-24 04:37] LABS: Anion Gap 15 mmol/L (10-20); BUN (Urea Nitrogen) 28 mg/dL (9.8-20.1); Calc. Creatinine Clearance 57 mL/min (70-130); Calcium 8.9 mg/dL (7.8-10.44); Carbon Dioxide 29 mmol/L (23-31); Chloride 94 mmol/L (98-107); Estimated GFR-MDRD 57; Glucose 125 mg/dL (83-110); Potassium 4.8 mmol/L (3.5-5.1); Sodium 133 mmol/L (136-145)
[2019-10-24 05:27] LABS: Band 6 % (5-11); Hemoglobin 9.1 g/dL (12.0-16.0); Lymphocytes 7 % (21-51); MDiff Complete? YES; Mean Corpuscular HGB CONC 32.5 g/dL (32.0-36.0); Mean Corpuscular Volume 95.4 fL (78.0-98.0); Monocytes 6 % (0-10); Myelocyte 1 % (0-0); Neutrophil 80 % (42-75); Platelet Count 370 thou/uL (130-400); Red Blood Cell (RBC) Count 2.95 mill/uL (4.20-5.40); White Blood Cell (WBC) Count 14.6 thou/uL (4.8-10.8)
[2019-10-24] MEDS: Bumetanide 1 MG/4 ML VIAL IVP SCH (06:10)
[2019-10-24 07:46] LABS: Bilirubin Negative (Negative); Blood, Urine Trace (Negative); Clarity Turbid (Clear); Glucose, Urine (Dipstick) Normal (Negative); Leukocyte 500 Leu/uL (Negative); Nitrite Negative (Negative); Protein, Urine (Dipstick) 10 mg/dL (Neg-Trace); Urobilinogen Normal mg/dL (Less than 2); WBC/HPF Greater than 50 HPF (0-3)
[2019-10-24 07:57] LABS: Bacteria/HPF 4+ HPF (None Seen)
[2019-10-24] MEDS: Famotidine/PF 20 mg/2ml Vial SLOW IVP SCH (09:07)
[2019-10-24] MEDS: predniSONE 20 MG TAB PO SCH (09:07)
[2019-10-24] MEDS: Acetaminophen 500 MG TAB PO PRN (09:13)
[2019-10-24] MEDS: Mag-Al 1200 mg/1200 mg/30 ML UDCUP PO PRN ×2 (09:17→16:44)
[2019-10-24] MEDS: Potassium Chloride 20 MEQ TAB PO SCH ×2 (09:20)
[2019-10-24] MEDS ORDERED: traMADol HCl 50 MG TAB PO PRN (09:29)
[2019-10-24] MEDS: cefTRIAXone\\ROCEPHIN 1 GM in Sodium Chloride 0.9% 100 ML IVPB SCH (11:59)
--- NOTE | 2019-10-24 12:24 | PDOC.HOSPP ---
- Subjective Encounter Date: 10/24/19 Subjective: The patient is complaining of severe heartburn that is preventing her from eating or drinking anything. She is also complaining of bilateral ankle pain. Otherwise, she is saturating well on room air and had a bowel movement yesterday. - Objective Vital Signs & Weight: Vital Signs (12 hours) Temp Pulse Resp BP Pulse Ox 10/24/19 11:32 93 20 10/24/19 11:05 97.8 F 101 H 20 115/53 L 95 10/24/19 08:17 93 L 10/24/19 08:16 95 16 10/24/19 07:23 97.8 F 100 18 138/62 93 L 10/24/19 03:14 98.2 F 95 18 140/63 97 Weight Admit Weight 170 lb Weight 167 lb I&O: 10/23/19 10/24/19 10/25/19 06:59 06:59 06:59 Intake Total 840 360 Output Total 1750 2150 Balance -910 -1790 Result Diagrams: 10/24/19 03:54 10/24/19 03:54 Hospitalist ROS - Medication Medications: Active Medications Generic Name Dose Route Start Last Admin Trade Name Freq PRN Reason Stop Dose Admin Acetaminophen 500 mg 10/19/19 10:51 10/24/19 09:13 Tylenol PO 500 mg Q4H PRN Administration Headache/Fever or Pain Al Hydroxide/Mg Hydroxide 30 ml 10/23/19 13:58 10/24/19 09:17 Maalox PO 30 ml Q4H PRN Administration Heartburn or Indigestion Albuterol/Ipratropium 3 ml 10/21/19 11:00 10/24/19 11:32 Duoneb NEB 3 ml [id number] VIKY Administration Enoxaparin Sodium 40 mg 10/18/19 21:00 10/23/19 21:01 Lovenox SC 40 mg 2100 VIKY Administration Famotidine 20 mg 10/22/19 09:00 10/24/19 09:07 Pepcid SLOW IVP 20 mg DAILY VIKY Administration Ceftriaxone Sodium 1 gm/ 100 mls @ 200 mls/hr 10/24/19 10:00 10/24/19 11:59 Sodium Chloride IVPB 100 mls Q24HR VIKY Administration Melatonin 3 mg 10/21/19 21:36 10/23/19 20:56 Melatonin PO 3 mg HS PRN Administration Insomnia Metoprolol Succinate 50 mg 10/23/19 09:00 10/24/19 09:07 Toprol Xl PO 50 mg BID VIKY Administration Ondansetron HCl 4 mg 10/18/19 14:48 10/20/19 21:33 Zofran IVP 4 mg Q6H PRN Administration Nausea/Vomiting Pantoprazole Sodium 40 mg 10/24/19 09:00 10/24/19 10:48 Protonix PO 40 mg DAILY VIKY Administration Prednisone 40 mg 10/22/19 08:00 10/24/19 09:07 Prednisone PO 40 mg QAM-WM VIKY Administration Sodium Chloride 10 ml 10/20/19 21:00 10/24/19 09:21 Flush - Normal Saline IVF Not Given Q12HR VIKY Sodium Chloride 10 ml 10/20/19 09:25 10/23/19 05:37 Flush - Normal Saline IVF 10 ml PRN PRN Administration Saline Flush Warfarin Sodium 8 mg 10/22/19 17:00 10/23/19 17:38 Coumadin PO 8 mg 1700 VIKY Administration - Exam General Appearance: NAD ENT: normocephalic atraumatic Neck: supple, no JVD Heart: RRR, no murmur, no gallops, normal peripheral pulses Respiratory: rhonchi Extremities: no cyanosis, no clubbing Neurological: cranial nerve grossly intact, no focal deficits Hosp A/P (1) Acute CHF Code(s): I50.9 - HEART FAILURE, UNSPECIFIED Status: Acute (2) SBO (small bowel obstruction) Code(s): K56.609 - UNSP INTESTNL OBST, UNSP TO PARTIAL VERSUS COMPLETE OBST Status: Acute (3) HTN (hypertension) Code(s): I10 - ESSENTIAL (PRIMARY) HYPERTENSION Status: Acute (4) COPD (chronic obstructive pulmonary disease) Status: Acute (5) Afib Code(s): I48.91 - UNSPECIFIED ATRIAL FIBRILLATION Status: Acute - Plan Pulmonary edema and volume overload improved with IV diuresis with Bumex. The patient is now saturating well on room air. Switch Bumex to oral 1 mg once daily. The patient is complaining of severe heartburn. Maalox and Protonix has been started. In addition, I will get an EKG and troponin to rule out atypical presentation of ACS. UA positive for UTI. Start IV ceftriaxone. Her creatinine level stable. Afib rate controlled on Toprolol XL INR remains subtherapeutic. Continue warfarin 8mg daily. Will discuss transition to DOAC. Echo with EF 40-45% Wheezing resolved. Continue nebs and corticosteroids SBO resolved
[2019-10-24] MEDS: Warfarin Sodium 2 MG TAB PO SCH (16:44)
--- NOTE | 2019-10-24 16:58 | EKG ---
Test Reason : Blood Pressure : / mmHG Vent. Rate : 113 BPM Atrial Rate : 170 BPM P-R Int : 000 ms QRS Dur : 096 ms QT Int : 364 ms P-R-T Axes : 000 031 074 degrees QTc Int : 499 ms Atrial fibrillation with rapid ventricular response with premature ventricular or aberrantly conducte d complexes Cannot rule out Inferior infarct , age undetermined Abnormal ECG Confirmed by BLAYNE COREAS ([id number]) on 10/24/2019 4:58:37 PM Referred By: JEANMARIE Confirmed By:BLAYNE COREAS
[2019-10-24] MEDS: Enoxaparin Sodium 40 MG/0.4 ML SYRINGE SC SCH (21:27)
[2019-10-24] MEDS: Melatonin 3 MG TAB PO PRN (21:27)
[2019-10-25 04:19] LABS: Anion Gap 16 mmol/L (10-20); BUN (Urea Nitrogen) 32 mg/dL (9.8-20.1); Calc. Creatinine Clearance 54 mL/min (70-130); Calcium 8.8 mg/dL (7.8-10.44); Carbon Dioxide 28 mmol/L (23-31); Chloride 92 mmol/L (98-107); Estimated GFR-MDRD 57; Glucose 129 mg/dL (83-110); Potassium 4.7 mmol/L (3.5-5.1); Sodium 131 mmol/L (136-145)
[2019-10-25 05:14] LABS: INR-International Normal Ratio 1.9; Prothrombin Time 21.3 SEC (12.0-14.7)
[2019-10-25 05:18] LABS: Band 10 % (5-11); Lymphocytes 8 % (21-51); MDiff Complete? YES; Mean Corpuscular HGB CONC 33.9 g/dL (32.0-36.0); Mean Corpuscular Hemoglobin 32.2 pg (27.0-31.0); Mean Corpuscular Volume 95.1 fL (78.0-98.0); Mean Platelet Volume 9.2 fL (7.4-10.4); Monocytes 4 % (0-10); Myelocyte 1 % (0-0); Neutrophil 77 % (42-75); Platelet Count 375 thou/uL (130-400); RBC Distribution Width 14.2 % (11.5-14.5); White Blood Cell (WBC) Count 15.3 thou/uL (4.8-10.8)
[2019-10-25] MEDS: predniSONE 20 MG TAB PO SCH (08:40)
[2019-10-25] MEDS: Bumetanide 1 MG TAB PO SCH (08:40)
[2019-10-25] MEDS: Famotidine/PF 20 mg/2ml Vial SLOW IVP SCH (08:41)
[2019-10-25] MEDS: cefTRIAXone\\ROCEPHIN 1 GM in Sodium Chloride 0.9% 100 ML IVPB SCH (10:12)
[2019-10-25] MEDS: Mag-Al 1200 mg/1200 mg/30 ML UDCUP PO PRN ×2 (10:18→15:29)
[2019-10-25] MEDS: Warfarin Sodium 2 MG TAB PO SCH (17:52)
--- NOTE | 2019-10-25 17:58 | PDOC.HOSPP ---
- Subjective Encounter Date: 10/25/19 Subjective: Still complaining of severe heartburn and inability to tolerate PO intake - Objective Vital Signs & Weight: Vital Signs (12 hours) Temp Pulse Pulse Pulse Resp BP BP 10/25/19 15:30 97.7 F 97 16 10/25/19 13:57 96 16 10/25/19 11:26 96 103 H 132/59 L 119/59 L 10/25/19 11:14 97.6 F 84 16 10/25/19 11:01 92 16 10/25/19 07:58 98.2 F 95 18 10/25/19 07:42 94 16 BP Pulse Ox 10/25/19 15:30 146/68 H 96 10/25/19 13:57 10/25/19 11:26 10/25/19 11:14 137/62 100 10/25/19 11:01 10/25/19 07:58 146/62 H 95 10/25/19 07:42 95 Weight Admit Weight 170 lb Weight 168 lb 1 oz I&O: 10/24/19 10/25/19 10/26/19 06:59 06:59 06:59 Intake Total 360 880 100 Output Total 2150 750 260 Balance -1790 130 -160 Result Diagrams: 10/25/19 03:46 10/25/19 03:46 Hospitalist ROS - Medication Medications: Active Medications Generic Name Dose Route Start Last Admin Trade Name Freq PRN Reason Stop Dose Admin Acetaminophen 500 mg 10/19/19 10:51 10/24/19 09:13 Tylenol PO 500 mg Q4H PRN Administration Headache/Fever or Pain Al Hydroxide/Mg Hydroxide 30 ml 10/23/19 13:58 10/25/19 15:29 Maalox PO 30 ml Q4H PRN Administration Heartburn or Indigestion Albuterol/Ipratropium 3 ml 10/21/19 11:00 10/25/19 13:57 Duoneb NEB 3 ml [id number] VIKY Administration Bumetanide 1 mg 10/25/19 09:00 10/25/19 08:40 Bumex PO 1 mg DAILY VIKY Administration Enoxaparin Sodium 40 mg 10/18/19 21:00 10/24/19 21:27 Lovenox SC 40 mg 2100 VIKY Administration Ceftriaxone Sodium 1 gm/ 100 mls @ 200 mls/hr 10/24/19 10:00 10/25/19 10:12 Sodium Chloride IVPB 100 mls Q24HR VIKY Administration Levofloxacin 500 mg 10/25/19 06:00 10/25/19 05:02 Levaquin PO 500 mg 0600 VIKY Administration Melatonin 3 mg 10/21/19 21:36 10/24/19 21:27 Melatonin PO 3 mg HS PRN Administration Insomnia Metoprolol Succinate 50 mg 10/23/19 09:00 10/25/19 08:40 Toprol Xl PO 50 mg BID VIKY Administration Ondansetron HCl 4 mg 10/18/19 14:48 10/20/19 21:33 Zofran IVP 4 mg Q6H PRN Administration Nausea/Vomiting Prednisone 40 mg 10/22/19 08:00 10/25/19 08:40 Prednisone PO 40 mg QAM-WM VIKY Administration Sodium Chloride 10 ml 10/20/19 21:00 10/25/19 08:41 Flush - Normal Saline IVF 10 ml Q12HR VIKY Administration Sodium Chloride 10 ml 10/20/19 09:25 10/23/19 05:37 Flush - Normal Saline IVF 10 ml PRN PRN Administration Saline Flush Tramadol HCl 50 mg 10/24/19 09:29 10/25/19 01:07 Ultram PO 50 mg Q6H PRN Administration Pain Warfarin Sodium 8 mg 10/22/19 17:00 10/24/19 16:44 Coumadin PO 8 mg 1700 VIKY Administration - Exam General Appearance: NAD, awake alert Eye: PERRL, anicteric sclera ENT: normocephalic atraumatic Neck: supple, symmetric, no JVD, no thyromegaly, no lymphadenopathy, no carotid bruit Heart: RRR, no murmur, no gallops, no rubs, normal peripheral pulses Respiratory: CTAB, no wheezes, no rales Gastrointestinal: soft, non-tender, non-distended, normal bowel sounds, no palpable masses, no hepatomegaly, no splenomegaly, no bruit Extremities: no cyanosis, no clubbing, no edema Skin: normal turgor, no lesions, no rashes Neurological: cranial nerve grossly intact, normal sensation to touch, no weakness, no focal deficits, no new deficit Musculoskeletal: normal tone, normal strength, no muscle wasting Psychiatric: normal affect, normal behavior, A&O x 3 Hosp A/P (1) Acute CHF Code(s): I50.9 - HEART FAILURE, UNSPECIFIED Status: Acute (2) SBO (small bowel obstruction) Code(s): K56.609 - UNSP INTESTNL OBST, UNSP TO PARTIAL VERSUS COMPLETE OBST Status: Acute (3) HTN (hypertension) Code(s): I10 - ESSENTIAL (PRIMARY) HYPERTENSION Status: Acute (4) COPD (chronic obstructive pulmonary disease) Status: Acute (5) Afib Code(s): I48.91 - UNSPECIFIED ATRIAL FIBRILLATION Status: Acute - Plan Pulmonary edema and volume overload improved with IV diuresis with Bumex. The patient is now saturating well on room air. Switch Bumex to oral 1 mg once daily. UA positive for UTI. On ceftriaxone. Her creatinine level stable. Afib rate controlled on Toprolol XL INR remains subtherapeutic. Continue warfarin 8mg daily. Will discuss transition to DOAC. Echo with EF 40-45% Wheezing resolved. Continue nebs and corticosteroids SBO resolved Severe odynophagia for 4 days since removal of NG Tube could be due to esophageal mucosal injury or ulceration. Clear liquid diet. IV protonix. Sitting 90 degrees with and after meals.
[2019-10-25] MEDS: Lidocaine 2% Viscous Solution 10 ML, Aluminum & Magnesium Hydroxide 30 ML SSW SCH (22:00)
[2019-10-25] MEDS: Sucralfate 1 GM/10 ML UDCUP PO SCH (22:02)
[2019-10-25] MEDS: Enoxaparin Sodium 40 MG/0.4 ML SYRINGE SC SCH (22:02)
[2019-10-25] MEDS: Pantoprazole 40 MG VIAL IVP SCH (22:04)
--- NOTE | 2019-10-26 00:20 | CON ---
DATE OF CONSULTATION: 10/25/2019 REASON FOR CONSULTATION: Odynophagia. CONSULTING PROVIDER: Arturo Hong MD HISTORY OF PRESENT ILLNESS: The patient is an 84-year-old female with past medical history of atrial fibrillation, COPD, hypertension, and hypothyroidism, who initially presented to the hospital with persistent nausea and vomiting. Shortly after admission, she had imaging that showed findings consistent with small bowel obstruction. She then had the placement of an NG tube for decompression of the upper GI tract and responded well to more conservative management with lessened nausea and vomiting over the next 24 to 48 hours at which point, she had a small-bowel follow-through that did not show any additional evidence of small-bowel obstruction. The NG tube was then subsequently removed and the patient was placed on a more clear liquid diet. However, upon removal of the tube, she states that she has been having intermittent episodes of substernal chest pain characterized as a burning-type sensation radiating to the left upper quadrant and right upper quadrant, it is intermittent, occurs primarily with ingestion of solids or liquids, will last for 5 minutes and then resolve and reaches a severity of 10/10. This pain is worse with the ingestion of any solids or liquids including water with no clear alleviating factors other than just time. She was subsequently placed on Maalox and PPI therapy and with this particular management, has been having some improvement in her symptoms over the last 24 to 48 hours, but continues to have significant substernal chest pain associated with ingestion of anything. Currently, she denies any regurgitation, acid taste in her mouth or overt epigastric abdominal pain, but does endorse increased eructation. She does have a history of heartburn that has been present for many many years and first started when she was . Over the last couple of years, it would require her to take antacids once every 4 to 5 months for alleviation of substernal pyrosis/heartburn. When compared to her heartburn episodes in the past, she states that this is similar in terms of location and sensation but significantly increased in terms of intensity. Currently, she denies any regurgitation, nausea, vomiting, fevers, chills, hematemesis, melena, hematochezia, dysphagia, constipation, or diarrhea. REVIEW OF SYSTEMS: A 10-category review of systems was obtained with all responses negative except for the pertinent positives as listed in HPI. PAST MEDICAL HISTORY: As per HPI. PAST SURGICAL HISTORY: Right hip fracture repair. FAMILY HISTORY: Denies any GI malignancies. SOCIAL HISTORY: Denies any tobacco, alcohol, or illicit drug use. MEDICATIONS: Outpatient and inpatient medications reviewed. ALLERGIES: NO KNOWN DRUG ALLERGIES. PHYSICAL EXAMINATION: VITAL SIGNS: Temperature 97.7, pulse 97, blood pressure 146/68, respiratory rate 16, saturating 96% on room air. GENERAL: The patient is lying in bed, in no acute distress. Alert and oriented x4. HEENT: Normocephalic, atraumatic. NECK: Supple. No JVD or scleral icterus noted. CARDIOVASCULAR: Regular rate and rhythm with no discernible murmurs, gallops, or rubs. RESPIRATORY: Clear to auscultation bilaterally with no discernible wheezes or rales, but with poor inspiratory effort. ABDOMEN: Normoactive bowel sounds. Soft, nontender, and nondistended. EXTREMITIES: No cyanosis, clubbing, or edema. LABORATORY DATA: CBC with a white blood cell count of 15.3, hemoglobin 10, hematocrit 29.4, platelets 375. Chemistry with a sodium of 131, potassium 4.7, chloride 92, CO2 of 28, BUN 32, creatinine 0.94, glucose 129. INR 1.9. IMAGING DATA: Acute abdominal series obtained on October 21, 2019, showed gas-filled dilated small bowel with air-fluid levels in the mid abdomen suggesting a small bowel obstruction or ileus. ASSESSMENT AND PLAN: The patient is an 84-year-old female with past medical history of atrial fibrillation, chronic obstructive pulmonary disease, hypothyroidism, and hypertension, presenting with small bowel obstruction, now responding to conservative management but with resulting odynophagia with removal of the NG tube. Odynophagia. The patient is presenting with recent history of small-bowel obstruction requiring the placement of an NG tube for decompression of the upper GI tract. She ultimately responded well to more conservative management and had the NG tube removed within 48 to 72 hours after placement. However, almost immediately on removal of the NG tube, she has been experiencing increased odynophagia characterized as a burning-type sensation with the ingestion of either solids or liquids that would then last for the next 5 minutes and spontaneously resolve. She does have a history of acid reflux and this is similar when compared to her heartburn symptoms in the past, but these are significantly more intense/severe. However, she has been responding to more conservative management with the addition of Maalox and PPI therapy over the last 24 to 48 hours, but does continue to have this pain. Differential could include severe esophagitis, NG tube trauma, esophageal candidiasis (less likely) eosinophilic esophagitis (much less likely), and/or GI neoplasm (less likely given lack of dysphagia symptoms). RECOMMENDATIONS: 1. Would continue patient on a clear liquid diet for now to ease passage through the esophagus. 2. Would continue patient on pantoprazole 40 mg IV b.i.d. However, I would also add sucralfate 1 g b.i.d. as part of a mucosal barrier to food and liquid. 3. Would recommend giving the patient GI cocktail with viscous lidocaine before meals, so that the patient can maintain adequate nutrition. 4. If the patient continues to have significant substernal chest pain over the next 24 hours with the above changes, I would then consider upper endoscopy for further evaluation. 5. Would refrain from replacement of any NG or Dobhoff tube given her significant odynophagia and higher likelihood of NG tube trauma. We will continue to follow. Please call with any questions. Job ID: [id number]
[2019-10-26] MEDS: predniSONE 20 MG TAB PO SCH (08:35)
[2019-10-26] MEDS: Pantoprazole 40 MG VIAL IVP SCH ×2 (08:35→21:15)
[2019-10-26] MEDS: Bumetanide 1 MG TAB PO SCH (08:35)
[2019-10-26] MEDS: Sucralfate 1 GM/10 ML UDCUP PO SCH ×2 (08:36→21:14)
[2019-10-26] MEDS: Lidocaine 2% Viscous Solution 10 ML, Aluminum & Magnesium Hydroxide 30 ML SSW SCH ×2 (08:36→17:58)
[2019-10-26] MEDS: cefTRIAXone\\ROCEPHIN 1 GM in Sodium Chloride 0.9% 100 ML IVPB SCH (10:02)
[2019-10-26 11:49] LABS: Hemoglobin 10.2 g/dL (12.0-16.0); Mean Corpuscular HGB CONC 31.6 g/dL (32.0-36.0); Mean Corpuscular Hemoglobin 30.6 pg (27.0-31.0); Mean Platelet Volume 8.9 fL (7.4-10.4); Platelet Count 347 thou/uL (130-400); RBC Distribution Width 14.4 % (11.5-14.5); Red Blood Cell (RBC) Count 3.32 mill/uL (4.20-5.40); White Blood Cell (WBC) Count 11.3 thou/uL (4.8-10.8)
[2019-10-26 12:14] LABS: Band 7 % (5-11); Lymphocytes 20 % (21-51); MDiff Complete? YES; Metamyelocyte 1 % (0-0); Monocytes 11 % (0-10); Neutrophil 60 % (42-75); Platelet Morphology Comment Appears Adequate; Polychromasia SLIGHT = 2-3 cells (100X) (0-2/hpf); Reactive Lymphocytes 1 % (0-10)
[2019-10-26 13:01] LABS: Chloride 95 mmol/L (98-107); Potassium 4.3 mmol/L (3.5-5.1); Sodium 133 mmol/L (136-145)
[2019-10-26 13:02] LABS: Calcium 8.8 mg/dL (7.8-10.44); Glucose 110 mg/dL (83-110)
[2019-10-26 13:04] LABS: Anion Gap 16 mmol/L (10-20); Carbon Dioxide 26 mmol/L (23-31)
[2019-10-26 13:05] LABS: Calc. Creatinine Clearance 47 mL/min (70-130); Estimated GFR-MDRD 49
[2019-10-26 13:06] LABS: BUN (Urea Nitrogen) 41 mg/dL (9.8-20.1)
--- NOTE | 2019-10-26 14:50 | PDOC.HOSPP ---
- Subjective Encounter Date: 10/26/19 Subjective: Her odynophagia is improving. Ambulating with PT. Respiratory status stable. - Objective Vital Signs & Weight: Vital Signs (12 hours) Temp Pulse Pulse Pulse Resp BP BP 10/26/19 13:44 95 94 120/56 L 117/55 L 10/26/19 12:00 98.3 F 96 16 10/26/19 11:01 86 16 10/26/19 08:35 10/26/19 08:27 97.4 F L 96 22 H 10/26/19 07:28 87 16 10/26/19 03:38 97.6 F 83 14 BP Pulse Ox Pulse Ox Pulse Ox 10/26/19 13:44 98 100 10/26/19 12:00 110/54 L 94 L 10/26/19 11:01 92 L 10/26/19 08:35 93 L 10/26/19 08:27 118/58 L 93 L 10/26/19 07:28 10/26/19 03:38 138/74 94 L Weight Admit Weight 170 lb Weight 165 lb 1.6 oz I&O: 10/25/19 10/26/19 10/27/19 06:59 06:59 06:59 Intake Total 880 485 Output Total 750 800 Balance 130 -315 Result Diagrams: 10/26/19 10:47 10/26/19 12:36 Hospitalist ROS - Medication Medications: Active Medications Generic Name Dose Route Start Last Admin Trade Name Freq PRN Reason Stop Dose Admin Acetaminophen 500 mg 10/19/19 10:51 10/24/19 09:13 Tylenol PO 500 mg Q4H PRN Administration Headache/Fever or Pain Albuterol/Ipratropium 3 ml 10/21/19 11:00 10/26/19 11:01 Duoneb NEB 3 ml [id number] VIKY Administration Bumetanide 1 mg 10/25/19 09:00 10/26/19 08:35 Bumex PO 1 mg DAILY VIKY Administration Enoxaparin Sodium 40 mg 10/18/19 21:00 10/25/19 22:02 Lovenox SC 40 mg 2100 VIKY Administration Ceftriaxone Sodium 1 gm/ 100 mls @ 200 mls/hr 10/24/19 10:00 10/26/19 10:02 Sodium Chloride IVPB 100 mls Q24HR VIKY Administration Levofloxacin 500 mg 10/25/19 06:00 10/26/19 05:56 Levaquin PO 500 mg 0600 VIKY Administration Melatonin 3 mg 10/21/19 21:36 10/24/19 21:27 Melatonin PO 3 mg HS PRN Administration Insomnia Metoprolol Succinate 50 mg 10/23/19 09:00 10/26/19 08:35 Toprol Xl PO 50 mg BID VIKY Administration Ondansetron HCl 4 mg 10/18/19 14:48 10/20/19 21:33 Zofran IVP 4 mg Q6H PRN Administration Nausea/Vomiting Pantoprazole Sodium 40 mg 10/25/19 21:00 10/26/19 08:35 Protonix IVP 40 mg Q12HR VIKY Administration Prednisone 40 mg 10/22/19 08:00 10/26/19 08:35 Prednisone PO 40 mg QAM-WM VIKY Administration Sodium Chloride 10 ml 10/20/19 21:00 10/26/19 08:37 Flush - Normal Saline IVF 10 ml Q12HR VIKY Administration Sodium Chloride 10 ml 10/20/19 09:25 10/23/19 05:37 Flush - Normal Saline IVF 10 ml PRN PRN Administration Saline Flush Sucralfate 1 gm 10/25/19 21:00 10/26/19 08:36 Carafate PO 1 gm BID VIKY Administration Tramadol HCl 50 mg 10/24/19 09:29 10/25/19 01:07 Ultram PO 50 mg Q6H PRN Administration Pain Warfarin Sodium 8 mg 10/22/19 17:00 10/25/19 17:52 Coumadin PO 8 mg 1700 VIKY Administration - Exam General Appearance: NAD ENT: normocephalic atraumatic Neck: supple, no JVD Heart: irregular Respiratory: CTAB Gastrointestinal: soft, non-tender, non-distended, normal bowel sounds Extremities: no cyanosis, no clubbing, no edema Skin: normal turgor Neurological: cranial nerve grossly intact, no focal deficits Hosp A/P (1) Acute CHF Code(s): I50.9 - HEART FAILURE, UNSPECIFIED Status: Acute (2) SBO (small bowel obstruction) Code(s): K56.609 - UNSP INTESTNL OBST, UNSP TO PARTIAL VERSUS COMPLETE OBST Status: Acute (3) HTN (hypertension) Code(s): I10 - ESSENTIAL (PRIMARY) HYPERTENSION Status: Acute (4) COPD (chronic obstructive pulmonary disease) Status: Acute (5) Afib Code(s): I48.91 - UNSPECIFIED ATRIAL FIBRILLATION Status: Acute (6) Odynophagia Code(s): R13.10 - DYSPHAGIA, UNSPECIFIED Status: Acute (7) Esophagitis Code(s): K20.9 - ESOPHAGITIS, UNSPECIFIED Status: Acute - Plan Pulmonary edema and volume overload improved with IV diuresis with Bumex. The patient is now saturating well on room air. Switch Bumex to oral 1 mg once daily. UA positive for UTI. Cultures showing G-tive bacilli. On ceftriaxone and Levofloxacin. Her creatinine level stable. Afib rate controlled on Toprolol XL INR remains subtherapeutic. Continue warfarin 8mg daily. Will discuss transition to DOAC. Echo with EF 40-45% Wheezing resolved. Continue nebs and corticosteroids SBO resolved Severe odynophagia for 4 days since removal of NG Tube could be due to esophageal mucosal injury or ulceration. Improving with Clear liquid diet, IV protonix, Carafate, viscous lidocaine, and sitting 90 degrees with and after meals. [facility].
[2019-10-26] MEDS ORDERED: Lidocaine 2% Viscous Solution 10 ML, Aluminum & Magnesium Hydroxide 30 ML SSW SCH ×2 (15:00→23:30)
[2019-10-26] MEDS: Warfarin Sodium 2 MG TAB PO SCH (17:58)
--- NOTE | 2019-10-26 20:09 | PRG ---
DATE OF SERVICE: 10/26/2019 REASON FOR CONSULTATION: Odynophagia. SUBJECTIVE: Today, the patient states that her swallowing is somewhat better with even though she continues to have burning substernal chest pain with ingestion of either solid or liquid, although it is not severe as it was yesterday. She has been receiving the GI cocktail prior to food ingestion in addition to the sucralfate and PPI thus far with mild improvement in her symptoms. However, earlier today, she was drinking Coke and cranberry juice, which do have higher acidic contents with increased symptoms with ingestion. She has been able to get out of bed to chair and even did ambulate around the pompa earlier today per the patient; however, she still continues to not be able to tolerate adequate amounts of oral intake with complaints of early satiety and mild abdominal bloating. She has not had a bowel movement within the last 24 hours, but she is passing gas. Otherwise, she denies any nausea, vomiting, fevers, chills, hematemesis, melena, or hematochezia. OBJECTIVE: VITAL SIGNS: Temperature 98, pulse 87, blood pressure 126/60, respiratory rate 16, saturating 94% on room air. GENERAL: The patient was lying in bed, in no acute distress. Alert and oriented x4. CARDIOVASCULAR: Regular rate and rhythm. RESPIRATORY: Clear to auscultation bilaterally. ABDOMEN: Normoactive bowel sounds. Soft, nontender, nondistended. EXTREMITIES: No cyanosis, clubbing, or edema. LABORATORY DATA: CBC with a white blood cell count of 11.3, hemoglobin 10.2, hematocrit 32.2, platelets 347. Chemistry with a sodium of 133, potassium 4.3, chloride 95, CO2 of 26, BUN 41, creatinine 1.07, glucose 110. IMAGING DATA: No current GI imaging is available for review. ASSESSMENT AND PLAN: The patient is an 84-year-old female with past medical history of atrial fibrillation, chronic obstructive pulmonary disease, hypothyroidism, and hypertension, presenting with small-bowel obstruction that responded to conservative management with NG tube, but now with increased odynophagia after removal of the NG tube. Odynophagia. The patient is presenting with a recent history of small-bowel obstruction requiring the placement of an NG tube, but experienced increased pain with swallowing promptly after its removal. This is characterized as a burning-type sensation with the ingestion of either solids or liquids that would then last for the next 5 minutes and spontaneously resolved. She was subsequently placed on PPI twice daily in addition to sucralfate and GI cocktail to be administered prior to meals and has shown some minimal improvement within the last 24 hours. However, she continues to have inadequate oral intake due to this odynophagia and complaints of early satiety. At this time, the dysphagia seems to be more related to acid reflux or NG tube trauma sustained during decompression of her small-bowel obstruction, likely she has severe esophagitis of the distal esophagus that will require sometime for adequate healing. RECOMMENDATIONS: 1. We will continue the patient on a clear liquid diet, but would advance as tolerated over the next 24 hours. 2. Continue pantoprazole 40 mg IV b.i.d., but would increase sucralfate to 1 g t.i.d. in addition to GI cocktail to be administered before meals. 3. If she does not have any additional improvement, we will consider upper endoscopy for further evaluation. 4. Would refrain from placement of an additional NG or Dobhoff tube unless clinically necessary. We will continue to follow. Please call with any questions. Job ID: [id number]
[2019-10-26] MEDS: Melatonin 3 MG TAB PO PRN (21:14)
[2019-10-26] MEDS: Enoxaparin Sodium 40 MG/0.4 ML SYRINGE SC SCH (21:14)
[2019-10-27 04:57] LABS: INR-International Normal Ratio 2.9; Prothrombin Time 30.1 SEC (12.0-14.7)
[2019-10-27 05:10] LABS: Anion Gap 12 mmol/L (10-20); BUN (Urea Nitrogen) 37 mg/dL (9.8-20.1); Calc. Creatinine Clearance 51 mL/min (70-130); Calcium 8.4 mg/dL (7.8-10.44); Carbon Dioxide 29 mmol/L (23-31); Chloride 94 mmol/L (98-107); Estimated GFR-MDRD 54; Glucose 146 mg/dL (83-110); Potassium 4.3 mmol/L (3.5-5.1); Sodium 131 mmol/L (136-145)
[2019-10-27 05:30] LABS: Band 4 % (5-11); Hemoglobin 10.4 g/dL (12.0-16.0); Lymphocytes 16 % (21-51); MDiff Complete? YES; Mean Corpuscular HGB CONC 33.2 g/dL (32.0-36.0); Mean Corpuscular Volume 96.3 fL (78.0-98.0); Mean Platelet Volume 9.2 fL (7.4-10.4); Monocytes 10 % (0-10); Neutrophil 70 % (42-75); Platelet Count 347 thou/uL (130-400); RBC Distribution Width 14.3 % (11.5-14.5); Red Blood Cell (RBC) Count 3.24 mill/uL (4.20-5.40); White Blood Cell (WBC) Count 10.3 thou/uL (4.8-10.8)
[2019-10-27] MEDS: predniSONE 20 MG TAB PO SCH (09:51)
[2019-10-27] MEDS: Lidocaine 2% Viscous Solution 10 ML, Aluminum & Magnesium Hydroxide 30 ML SSW SCH ×3 (09:51→16:46)
[2019-10-27] MEDS: Bumetanide 1 MG TAB PO SCH (09:51)
[2019-10-27] MEDS: Sucralfate 1 GM/10 ML UDCUP PO SCH ×3 (09:52→21:14)
[2019-10-27] MEDS: Pantoprazole 40 MG VIAL IVP SCH ×2 (09:52→21:14)
[2019-10-27] MEDS: cefTRIAXone\\ROCEPHIN 1 GM in Sodium Chloride 0.9% 100 ML IVPB SCH (09:59)
--- NOTE | 2019-10-27 12:35 | PRG ---
DATE OF SERVICE: 10/27/2019 REASON FOR CONSULTATION: Odynophagia. SUBJECTIVE: Today, the patient states that her pain with swallowing is relatively unchanged when compared to yesterday. She continues to have significant substernal chest pain/pyrosis with ingestion of anything. She has been drinking more lemonade and coffee over the last 24 hours which could potentially contribute to other acidic contents, but was also getting the same symptoms with Jell-O and consumption of Ensure. At this point, she is getting the acid reflux medications as the sucralfate although the timing on the GI cocktail prior to meals has been sporadic at best. Otherwise, she denies any nausea, vomiting, fevers, chills, hematemesis, melena, or hematochezia. OBJECTIVE: VITAL SIGNS: Temperature 98.2, pulse 85, blood pressure 124/60, respiratory rate 12, saturating 96% on room air. GENERAL: The patient was lying in bed, in no acute distress. Alert and oriented x4. CARDIOVASCULAR: Regular rate and rhythm. RESPIRATORY: Clear to auscultation bilaterally. ABDOMEN: Normoactive bowel sounds. Soft, nontender, nondistended. EXTREMITIES: No cyanosis, clubbing, or edema. LABORATORY DATA: CBC with a white blood cell count of 10.3, hemoglobin 10.4, hematocrit 31.2, platelets 347. INR 2.9. Chemistry with a sodium of 131, potassium 4.3, chloride 94, CO2 of 29, BUN 37, creatinine 0.98, glucose 146. IMAGING DATA: No current GI imaging is available for review. ASSESSMENT AND PLAN: The patient is an 84-year-old female with past medical history of atrial fibrillation, chronic obstructive pulmonary disease, hypothyroidism, and hypertension, presenting with a small-bowel obstruction that has responded to conservative management with NG tube, but now with increased odynophagia immediately after removal of the NG tube. Odynophagia. The patient presented to [facility] with what appeared to be a small-bowel obstruction requiring the placement of NG tube. However, she experienced increased substernal pyrosis immediately after its withdrawal and has had significant pain ever since that would occur with both solids and liquids. She was placed on PPI twice daily in addition to a sucralfate GI cocktail with minimal improvement initially, but no additional gains over the last 24 hours. As such, with the increased chest pain, she has been unable to adequately tolerate oral intake, although she has been drinking fairly acidic products, which could also contribute to her symptoms, if there is a significant amount of esophagitis present. At this time, the most likely explanation would be severe esophagitis due to acid reflux or trauma secondary to NG tube placement generating her symptoms, but the differential could also include Mag esophagitis and/or possible malignancy (much less likely). RECOMMENDATIONS: 1. We would continue the patient on a clear liquid diet, but hold any feeds at midnight in anticipation for EGD tomorrow. 2. We will plan for EGD tomorrow for intraluminal evaluation and confirmation of esophagitis. 3. Continue pantoprazole 40 mg IV b.i.d. Sucralfate 1 g t.i.d. and GI cocktail to be administered before meals. 4. Would refrain from placement of an additional NG or Dobhoff tube unless clinically necessary. We will continue to follow. Please call with any questions. Job ID: [id number]
[2019-10-27] MEDS: Warfarin Sodium 2 MG TAB PO SCH (16:49)
--- NOTE | 2019-10-27 19:41 | PDOC.HOSPP ---
- Subjective Encounter Date: 10/27/19 Subjective: Tolerating clear liquid diet - Objective Vital Signs & Weight: Vital Signs (12 hours) Temp Pulse Pulse Pulse Resp BP BP 10/27/19 18:41 85 16 10/27/19 15:52 97.8 F 92 18 10/27/19 14:17 87 16 10/27/19 11:53 98.2 F 85 12 10/27/19 10:43 82 16 10/27/19 09:29 83 83 137/60 126/59 L BP Pulse Ox Pulse Ox Pulse Ox 10/27/19 18:41 94 L 10/27/19 15:52 127/60 95 10/27/19 14:17 94 L 10/27/19 11:53 124/60 96 10/27/19 10:43 94 L 10/27/19 09:29 95 96 Weight Admit Weight 170 lb Weight 164 lb 6 oz I&O: 10/26/19 10/27/19 10/28/19 06:59 06:59 06:59 Intake Total 485 840 960 Output Total 800 1100 600 Balance -315 -260 360 Result Diagrams: 10/27/19 04:29 10/27/19 04:29 Hospitalist ROS - Medication Medications: Active Medications Generic Name Dose Route Start Last Admin Trade Name Freq PRN Reason Stop Dose Admin Acetaminophen 500 mg 10/19/19 10:51 10/24/19 09:13 Tylenol PO 500 mg Q4H PRN Administration Headache/Fever or Pain Albuterol/Ipratropium 3 ml 10/21/19 11:00 10/27/19 18:41 Duoneb NEB 3 ml [id number] VIKY Administration Bumetanide 1 mg 10/25/19 09:00 10/27/19 09:51 Bumex PO 1 mg DAILY VIKY Administration Lidocaine HCl 10 ml/ Al 0 ml 10/26/19 17:00 10/27/19 16:46 Hydroxide/Mg Hydroxide 30 ml SSW 1 dose TID-WM VIKY Administration Enoxaparin Sodium 40 mg 10/18/19 21:00 10/26/19 21:14 Lovenox SC 40 mg 2100 VIKY Administration Ceftriaxone Sodium 1 gm/ 100 mls @ 200 mls/hr 10/24/19 10:00 10/27/19 09:59 Sodium Chloride IVPB 100 mls Q24HR VIKY Administration Melatonin 3 mg 10/21/19 21:36 10/26/19 21:14 Melatonin PO 3 mg HS PRN Administration Insomnia Metoprolol Succinate 50 mg 10/23/19 09:00 10/27/19 09:51 Toprol Xl PO 50 mg BID VIKY Administration Ondansetron HCl 4 mg 10/18/19 14:48 10/20/19 21:33 Zofran IVP 4 mg Q6H PRN Administration Nausea/Vomiting Pantoprazole Sodium 40 mg 10/25/19 21:00 10/27/19 09:52 Protonix IVP 40 mg Q12HR VIKY Administration Prednisone 40 mg 10/22/19 08:00 10/27/19 09:51 Prednisone PO 40 mg QAM-WM VIKY Administration Sodium Chloride 10 ml 10/20/19 21:00 10/27/19 09:52 Flush - Normal Saline IVF 10 ml Q12HR VIKY Administration Sodium Chloride 10 ml 10/20/19 09:25 10/23/19 05:37 Flush - Normal Saline IVF 10 ml PRN PRN Administration Saline Flush Sucralfate 1 gm 10/26/19 21:00 10/27/19 14:04 Carafate PO 1 gm TID VIKY Administration Tramadol HCl 50 mg 10/24/19 09:29 10/25/19 01:07 Ultram PO 50 mg Q6H PRN Administration Pain - Exam General Appearance: awake alert ENT: normocephalic atraumatic, no oropharyngeal lesions Neck: supple, no JVD Heart: RRR, no murmur, no gallops, no rubs, normal peripheral pulses Respiratory: CTAB, no wheezes, no rales, no ronchi, normal chest expansion Hosp A/P (1) Acute CHF Code(s): I50.9 - HEART FAILURE, UNSPECIFIED Status: Acute (2) SBO (small bowel obstruction) Code(s): K56.609 - UNSP INTESTNL OBST, UNSP TO PARTIAL VERSUS COMPLETE OBST Status: Acute (3) HTN (hypertension) Code(s): I10 - ESSENTIAL (PRIMARY) HYPERTENSION Status: Acute (4) COPD (chronic obstructive pulmonary disease) Status: Acute (5) Afib Code(s): I48.91 - UNSPECIFIED ATRIAL FIBRILLATION Status: Acute (6) Odynophagia Code(s): R13.10 - DYSPHAGIA, UNSPECIFIED Status: Acute (7) Esophagitis Code(s): K20.9 - ESOPHAGITIS, UNSPECIFIED Status: Acute - Plan Pulmonary edema and volume overload improved with IV diuresis with Bumex. The patient is now saturating well on room air. Switch Bumex to oral 1 mg once daily. UA positive for UTI. Cultures showing growth of Klebsella and E.Coli. On ceftriaxone. Her creatinine level stable. Afib rate controlled on Toprolol XL INR is therapeatic. Echo with EF 40-45% Wheezing resolved. Continue nebs and corticosteroids SBO resolved Severe odynophagia for 5 days since removal of NG Tube could be due to esophageal mucosal injury or ulceration. Improving with Clear liquid diet, IV protonix, Carafate, viscous lidocaine, and sitting 90 degrees with and after meals. EGD planned for tomorrow.
[2019-10-27] MEDS: Enoxaparin Sodium 40 MG/0.4 ML SYRINGE SC SCH (21:14)
[2019-10-27] MEDS: Melatonin 3 MG TAB PO PRN (21:59)
[2019-10-28] MEDS ORDERED: Lidocaine 2% Viscous Solution 10 ML, Aluminum & Magnesium Hydroxide 30 ML SSW SCH (01:30)
[2019-10-28 04:45] LABS: INR-International Normal Ratio 3.8; Prothrombin Time 36.9 SEC (12.0-14.7)
[2019-10-28 05:00] LABS: Band 3 % (5-11); Hemoglobin 10.8 g/dL (12.0-16.0); Lymphocytes 15 % (21-51); MDiff Complete? YES; Mean Corpuscular HGB CONC 33.2 g/dL (32.0-36.0); Mean Corpuscular Hemoglobin 31.7 pg (27.0-31.0); Mean Corpuscular Volume 95.6 fL (78.0-98.0); Mean Platelet Volume 9.5 fL (7.4-10.4); Monocytes 6 % (0-10); Neutrophil 76 % (42-75); Platelet Count 349 thou/uL (130-400); Platelet Morphology Comment Appears Adequate; White Blood Cell (WBC) Count 12.6 thou/uL (4.8-10.8)
[2019-10-28 05:05] LABS: Anion Gap 13 mmol/L (10-20); BUN (Urea Nitrogen) 33 mg/dL (9.8-20.1); Calc. Creatinine Clearance 58 mL/min (70-130); Calcium 8.7 mg/dL (7.8-10.44); Carbon Dioxide 29 mmol/L (23-31); Chloride 94 mmol/L (98-107); Estimated GFR-MDRD 62; Glucose 166 mg/dL (83-110); Potassium 4.1 mmol/L (3.5-5.1); Sodium 132 mmol/L (136-145)
[2019-10-28] MEDS ORDERED: PROPOFOL 200 MG/20 ML VIAL ONE (09:30)
[2019-10-28] MEDS ORDERED: Phytonadione 10 MG/ML AMP PO SCH (10:00)
[2019-10-28] MEDS: predniSONE 20 MG TAB PO SCH (12:49)
[2019-10-28] MEDS: Lidocaine 2% Viscous Solution 10 ML, Aluminum & Magnesium Hydroxide 30 ML SSW SCH ×3 (12:49→17:42)
[2019-10-28] MEDS: Bumetanide 1 MG TAB PO SCH (12:49)
[2019-10-28] MEDS: cefTRIAXone\\ROCEPHIN 1 GM in Sodium Chloride 0.9% 100 ML IVPB SCH (12:50)
[2019-10-28] MEDS: Sucralfate 1 GM/10 ML UDCUP PO SCH ×3 (12:50→21:04)
[2019-10-28] MEDS: Pantoprazole 40 MG VIAL IVP SCH ×2 (12:50→21:05)
[2019-10-28 13:35] VITALS: BMI 27.3
--- NOTE | 2019-10-28 14:18 | OP ---
DATE OF PROCEDURE: 10/28/2019 PROCEDURE PERFORMED: Esophagogastroduodenoscopy with biopsy. PREPROCEDURE DIAGNOSES: 1. Recent small-bowel obstruction of unknown etiology. 2. Persistent odynophagia since removal of the nasogastric tube. 3. Suspected reflux. POSTPROCEDURE DIAGNOSES: 1. Severe erosive esophagitis with areas of re-epithelialization. This involves the entire distal 2/3 of the esophagus and circumferential, it is consistent with severe reflux. Biopsies were obtained to rule out viral issues. 2. Stomach notable for mild gastritis with some adherent material exudate versus medicines. This could be Carafate as she has been on some swallowed medicine for dysphagia. ANESTHESIA: TIVA. PROCEDURE IN DETAIL: After the patient was informed of the risks, benefits, and possible complications of endoscopy including perforation, bleeding, reaction to medication, and aspiration, informed consent was obtained. The patient was brought to the endoscopy suite. She was sedated. A bite block was placed inside the orifice. The endoscope was advanced to the esophagus, stomach, and second and third portions of the duodenum and was slowly removed. The esophagus was notable for some exudate, which was suctioned away, likely was topical medicines that were being used to control some of her symptoms, revealed severe erosive esophagitis of the distal 2/3 of the esophagus. There was no specific ulcers, blisters, or exudate suggestive of viral or Mag infections respectively. Multiple biopsies were taken to rule out other etiologies to her esophagitis, but this just appears to be severe ulcerative reflux esophagitis. The stomach was found to be normal except for mild erythema. Biopsies were taken there as well. There was some exudate in the stomach and this was washed away pretty easily and this was again probably topical medications. There was normal distensibility. The duodenum was normal in the 3rd portion. The scope was removed. The patient tolerated the procedure well. There were no complications. RECOMMENDATIONS: 1. IV PPI. 2. Resume full liquid diet. 3. The patient has ongoing lower abdominal pain may reasonable to get a CAT scan on her as she earlier in the hospitalization was treated for a small-bowel obstruction, which seems to be resolved, but the etiology of which was never determined. 4. We will follow from a distance. If I can be of any further assistance in the patient's care, please do not hesitate to contact me. Job ID: [id number]
--- NOTE | 2019-10-28 14:36 | PDOC.HOSPP ---
- Subjective Encounter Date: 10/28/19 Subjective: NPO for EGD. No new complaints. - Objective Vital Signs & Weight: Vital Signs (12 hours) Temp Pulse Resp BP Pulse Ox 10/28/19 12:00 81 18 142/63 H 94 L 10/28/19 07:22 96 10/28/19 07:19 89 16 10/28/19 07:05 97.7 F 78 18 119/60 95 10/28/19 04:00 97.7 F 89 16 121/56 L 94 L Weight Admit Weight 170 lb Weight 164 lb I&O: 10/27/19 10/28/19 10/29/19 06:59 06:59 06:59 Intake Total 840 1080 Output Total 1100 1000 Balance -260 80 Result Diagrams: 10/28/19 03:56 10/28/19 03:56 Hospitalist ROS - Medication Medications: Active Medications Generic Name Dose Route Start Last Admin Trade Name Freq PRN Reason Stop Dose Admin Acetaminophen 500 mg 10/19/19 10:51 10/24/19 09:13 Tylenol PO 500 mg Q4H PRN Administration Headache/Fever or Pain Albuterol/Ipratropium 3 ml 10/21/19 11:00 10/28/19 10:24 Duoneb NEB Not Given [id number] VIKY Bumetanide 1 mg 10/25/19 09:00 10/28/19 12:49 Bumex PO 1 mg DAILY VIKY Administration Lidocaine HCl 10 ml/ Al 0 ml 10/26/19 17:00 10/28/19 13:37 Hydroxide/Mg Hydroxide 30 ml SSW Not Given TID-WM VIKY Enoxaparin Sodium 40 mg 10/18/19 21:00 10/27/19 21:14 Lovenox SC 40 mg 2100 VIKY Administration Ceftriaxone Sodium 1 gm/ 100 mls @ 200 mls/hr 10/24/19 10:00 10/28/19 12:50 Sodium Chloride IVPB 100 mls Q24HR VIKY Administration Melatonin 3 mg 10/21/19 21:36 10/27/19 21:59 Melatonin PO 3 mg HS PRN Administration Insomnia Metoprolol Succinate 50 mg 10/23/19 09:00 10/28/19 06:20 Toprol Xl PO 50 mg BID VIKY Administration Ondansetron HCl 4 mg 10/18/19 14:48 10/20/19 21:33 Zofran IVP 4 mg Q6H PRN Administration Nausea/Vomiting Pantoprazole Sodium 40 mg 10/25/19 21:00 10/28/19 12:50 Protonix IVP 40 mg Q12HR VIKY Administration Prednisone 40 mg 10/22/19 08:00 10/28/19 12:49 Prednisone PO 40 mg QAM-WM VIKY Administration Sodium Chloride 10 ml 10/20/19 21:00 10/28/19 13:00 Flush - Normal Saline IVF 10 ml Q12HR VIKY Administration Sodium Chloride 10 ml 10/20/19 09:25 10/23/19 05:37 Flush - Normal Saline IVF 10 ml PRN PRN Administration Saline Flush Sucralfate 1 gm 10/26/19 21:00 10/28/19 12:50 Carafate PO 1 gm TID VIKY Administration Tramadol HCl 50 mg 10/24/19 09:29 10/25/19 01:07 Ultram PO 50 mg Q6H PRN Administration Pain - Exam General Appearance: awake alert ENT: normocephalic atraumatic Neck: supple, no JVD Heart: RRR Respiratory: CTAB, no wheezes, no rales, no ronchi, normal chest expansion Gastrointestinal: soft, non-tender, non-distended, normal bowel sounds, no palpable masses Extremities: no cyanosis, no clubbing Skin: normal turgor Hosp A/P (1) Acute CHF Code(s): I50.9 - HEART FAILURE, UNSPECIFIED Status: Acute (2) SBO (small bowel obstruction) Code(s): K56.609 - UNSP INTESTNL OBST, UNSP TO PARTIAL VERSUS COMPLETE OBST Status: Acute (3) HTN (hypertension) Code(s): I10 - ESSENTIAL (PRIMARY) HYPERTENSION Status: Acute (4) COPD (chronic obstructive pulmonary disease) Status: Acute (5) Afib Code(s): I48.91 - UNSPECIFIED ATRIAL FIBRILLATION Status: Acute (6) Odynophagia Code(s): R13.10 - DYSPHAGIA, UNSPECIFIED Status: Acute (7) Esophagitis Code(s): K20.9 - ESOPHAGITIS, UNSPECIFIED Status: Acute - Plan Pulmonary edema and volume overload improved with IV diuresis with Bumex. The patient is now saturating well on room air. Switch Bumex to oral 1 mg once daily. UA positive for UTI. Cultures showing growth of Klebsella and E.Coli. On ceftriaxone. Her creatinine level stable. Afib rate controlled on Toprolol XL INR is therapeatic. Echo with EF 40-45% Wheezing resolved. Continue nebs and corticosteroids SBO resolved Severe odynophagia for 6 days since removal of NG Tube could be due to esophageal mucosal injury or ulceration. Improving with Clear liquid diet, IV protonix, Carafate, viscous lidocaine, and sitting 90 degrees with and after meals. Follow results of EGD today.
[2019-10-28] MEDS: Enoxaparin Sodium 40 MG/0.4 ML SYRINGE SC SCH (21:04)
[2019-10-28] MEDS: Melatonin 3 MG TAB PO PRN (21:05)
[2019-10-29 05:17] LABS: Hemoglobin 10.4 g/dL (12.0-16.0); Mean Corpuscular HGB CONC 32.7 g/dL (32.0-36.0); Mean Corpuscular Hemoglobin 31.7 pg (27.0-31.0); Mean Corpuscular Volume 96.7 fL (78.0-98.0); Mean Platelet Volume 9.4 fL (7.4-10.4); Platelet Count 286 thou/uL (130-400); RBC Distribution Width 13.7 % (11.5-14.5); White Blood Cell (WBC) Count 10.5 thou/uL (4.8-10.8)
[2019-10-29 05:22] LABS: INR-International Normal Ratio 1.7; Prothrombin Time 19.5 SEC (12.0-14.7)
[2019-10-29 05:32] LABS: Anion Gap 12 mmol/L (10-20); BUN (Urea Nitrogen) 31 mg/dL (9.8-20.1); Calc. Creatinine Clearance 65 mL/min (70-130); Calcium 8.3 mg/dL (7.8-10.44); Carbon Dioxide 27 mmol/L (23-31); Chloride 97 mmol/L (98-107); Estimated GFR-MDRD 72; Glucose 125 mg/dL (83-110); Potassium 3.9 mmol/L (3.5-5.1); Sodium 132 mmol/L (136-145)
[2019-10-29 06:07] LABS: Band 3 % (5-11); Lymphocytes 14 % (21-51); MDiff Complete? YES; Monocytes 4 % (0-10); Myelocyte 1 % (0-0); Neutrophil 78 % (42-75); Nucleated RBC 1 % (0); Platelet Morphology Comment Appears Adequate; RBC Morphology Normal
[2019-10-29] MEDS: predniSONE 20 MG TAB PO SCH (07:56)
[2019-10-29] MEDS: Lidocaine 2% Viscous Solution 10 ML, Aluminum & Magnesium Hydroxide 30 ML SSW SCH ×3 (07:57→17:15)
[2019-10-29] MEDS: Bumetanide 1 MG TAB PO SCH (08:00)
[2019-10-29] MEDS: Pantoprazole 40 MG VIAL IVP SCH ×2 (08:00→20:46)
[2019-10-29] MEDS: Sucralfate 1 GM/10 ML UDCUP PO SCH ×3 (08:01→21:42)
[2019-10-29] MEDS: cefTRIAXone\\ROCEPHIN 1 GM in Sodium Chloride 0.9% 100 ML IVPB SCH (09:28)
--- NOTE | 2019-10-29 14:59 | PRG ---
DATE OF SERVICE: 10/29/2019 SUBJECTIVE: Ms. Shields notes that she is no longer having any dysphagia or odynophagia. She does not have much of an appetite, though. She remains on prednisone 40 daily, sucralfate, tramadol, Protonix, metoprolol, Lovenox, Rocephin, Bumex. OBJECTIVE: GENERAL: She is resting comfortably in bed. VITAL SIGNS: Temperature is 97, pulse 87, respirations 16, blood pressure 123/56. ABDOMEN: Soft, nontender. LABORATORY DATA: White count 10.5, hemoglobin 10.4, platelet count 286. INR was 1.7 yesterday. Basic metabolic panel, sodium 132, potassium 3.9. BUN and creatinine 31 and 0.7. ASSESSMENT: 1. Odynophagia. This is likely due to severe reflux esophagitis as documented by yesterday's EGD. Biopsies are pending. She is much better. 2. Chronic obstructive pulmonary disease. 3. Atrial fibrillation. 4. Hypothyroidism. 5. Recent partial small bowel obstruction of unclear etiology. RECOMMENDATIONS: 1. I think we can stop the Carafate, continue PPI, advance her diet as tolerated. 2. She continues to have issues with not eating, may be reasonable to consider CAT scan of abdomen and pelvis if there are no overt findings of bowel obstruction on her initial imaging studies. We will follow from a distance at this point in time. If I can be of any further assistance in the patient's care, please do not hesitate to call me. Job ID: [id number]
--- NOTE | 2019-10-29 19:39 | PDOC.HOSPP ---
- Subjective Encounter Date: 10/29/19 Subjective: Continues to have severe odynophagia. She feels like she is getting enough nutrition and hydration. - Objective Vital Signs & Weight: Vital Signs (12 hours) Temp Pulse Resp BP Pulse Ox 10/29/19 16:37 96.4 F L 100 15 135/58 L 96 10/29/19 15:54 98 16 10/29/19 11:17 97.8 F 98 16 123/56 L 94 L 10/29/19 08:17 96 10/29/19 08:16 86 16 10/29/19 07:46 98.0 F 91 20 123/58 L 93 L Weight Admit Weight 170 lb Weight 164 lb 8 oz I&O: 10/28/19 10/29/19 10/30/19 06:59 06:59 06:59 Intake Total 1080 1260 Output Total 1000 475 Balance 80 785 Result Diagrams: 10/29/19 04:44 10/29/19 04:44 Hospitalist ROS - Medication Medications: Active Medications Generic Name Dose Route Start Last Admin Trade Name Freq PRN Reason Stop Dose Admin Acetaminophen 500 mg 10/19/19 10:51 10/24/19 09:13 Tylenol PO 500 mg Q4H PRN Administration Headache/Fever or Pain Albuterol/Ipratropium 3 ml 10/21/19 11:00 10/29/19 15:54 Duoneb NEB 3 ml [id number] VIKY Administration Bumetanide 1 mg 10/25/19 09:00 10/29/19 08:00 Bumex PO 1 mg DAILY VIKY Administration Lidocaine HCl 10 ml/ Al 0 ml 10/26/19 17:00 10/29/19 17:15 Hydroxide/Mg Hydroxide 30 ml SSW 1 dose TID-WM VIKY Administration Enoxaparin Sodium 40 mg 10/18/19 21:00 10/28/19 21:04 Lovenox SC 40 mg 2100 VIKY Administration Ceftriaxone Sodium 1 gm/ 100 mls @ 200 mls/hr 10/24/19 10:00 10/29/19 09:28 Sodium Chloride IVPB 100 mls Q24HR VIKY Administration Melatonin 3 mg 10/21/19 21:36 10/28/19 21:05 Melatonin PO 3 mg HS PRN Administration Insomnia Metoprolol Succinate 50 mg 10/23/19 09:00 10/29/19 08:00 Toprol Xl PO 50 mg BID VIKY Administration Ondansetron HCl 4 mg 10/18/19 14:48 10/20/19 21:33 Zofran IVP 4 mg Q6H PRN Administration Nausea/Vomiting Pantoprazole Sodium 40 mg 10/25/19 21:00 10/29/19 08:00 Protonix IVP 40 mg Q12HR VIKY Administration Prednisone 40 mg 10/22/19 08:00 10/29/19 07:56 Prednisone PO 40 mg QAM-WM VIKY Administration Sodium Chloride 10 ml 10/20/19 21:00 10/29/19 08:01 Flush - Normal Saline IVF 10 ml Q12HR VIKY Administration Sodium Chloride 10 ml 10/20/19 09:25 10/23/19 05:37 Flush - Normal Saline IVF 10 ml PRN PRN Administration Saline Flush Sucralfate 1 gm 10/26/19 21:00 10/29/19 16:10 Carafate PO 1 gm TID VIKY Administration Tramadol HCl 50 mg 10/24/19 09:29 10/25/19 01:07 Ultram PO 50 mg Q6H PRN Administration Pain - Exam General Appearance: NAD, awake alert Heart: RRR, no murmur, no gallops, no rubs, normal peripheral pulses Respiratory: CTAB, no wheezes, no rales, no ronchi, normal chest expansion, no tachypnea, normal percussion Gastrointestinal: soft, non-tender, non-distended, normal bowel sounds, no palpable masses, no hepatomegaly, no splenomegaly, no bruit Skin: normal turgor, no lesions, no rashes Musculoskeletal: normal tone, normal strength, no muscle wasting Psychiatric: normal affect, normal behavior, A&O x 3 Hosp A/P (1) SBO (small bowel obstruction) Code(s): K56.609 - UNSP INTESTNL OBST, UNSP TO PARTIAL VERSUS COMPLETE OBST Status: Acute (2) Odynophagia Code(s): R13.10 - DYSPHAGIA, UNSPECIFIED Status: Acute (3) Afib Code(s): I48.91 - UNSPECIFIED ATRIAL FIBRILLATION Status: Acute (4) COPD (chronic obstructive pulmonary disease) Status: Acute (5) Esophagitis Code(s): K20.9 - ESOPHAGITIS, UNSPECIFIED Status: Acute (6) HTN (hypertension) Code(s): I10 - ESSENTIAL (PRIMARY) HYPERTENSION Status: Acute - Plan Severe esophagitis. Continue PPI. If she can adequately take food and hydration and meds, she can likely DC for OP follow up. Having no other abdominal pain. Rate controlled. Therapeutic INR.
[2019-10-29] MEDS: Sodium Chloride 0.9% (PF) 10 ML VIAL FS PRN (20:45)
[2019-10-29] MEDS: Enoxaparin Sodium 40 MG/0.4 ML SYRINGE SC SCH (20:46)
[2019-10-29] MEDS: Ondansetron PF 4 MG/2 ML Vial IVP PRN (20:46)
[2019-10-29] MEDS: Melatonin 3 MG TAB PO PRN (21:43)
[2019-10-30 04:38] LABS: INR-International Normal Ratio 1.1; Prothrombin Time 14.6 SEC (12.0-14.7)
[2019-10-30 04:46] LABS: Band 4 % (5-11); Hemoglobin 10.4 g/dL (12.0-16.0); Lymphocytes 7 % (21-51); MDiff Complete? YES; Mean Corpuscular HGB CONC 33.1 g/dL (32.0-36.0); Mean Corpuscular Hemoglobin 31.7 pg (27.0-31.0); Mean Corpuscular Volume 95.8 fL (78.0-98.0); Mean Platelet Volume 9.9 fL (7.4-10.4); Monocytes 4 % (0-10); Neutrophil 85 % (42-75); Platelet Count 278 thou/uL (130-400); Platelet Morphology Comment Appears Adequate; RBC Distribution Width 13.7 % (11.5-14.5); RBC Morphology Normal; White Blood Cell (WBC) Count 14.6 thou/uL (4.8-10.8)
[2019-10-30 04:58] LABS: Anion Gap 13 mmol/L (10-20); BUN (Urea Nitrogen) 36 mg/dL (9.8-20.1); Calc. Creatinine Clearance 67 mL/min (70-130); Calcium 8.5 mg/dL (7.8-10.44); Carbon Dioxide 30 mmol/L (23-31); Chloride 94 mmol/L (98-107); Estimated GFR-MDRD 74; Glucose 145 mg/dL (83-110); Potassium 3.8 mmol/L (3.5-5.1); Sodium 133 mmol/L (136-145)
[2019-10-30] MEDS: Lidocaine 2% Viscous Solution 10 ML, Aluminum & Magnesium Hydroxide 30 ML SSW SCH ×3 (08:00→16:51)
[2019-10-30] MEDS: predniSONE 20 MG TAB PO SCH (08:04)
[2019-10-30] MEDS: Bumetanide 1 MG TAB PO SCH (09:25)
[2019-10-30] MEDS: Pantoprazole 40 MG VIAL IVP SCH ×2 (09:26→20:47)
[2019-10-30] MEDS: cefTRIAXone\\ROCEPHIN 1 GM in Sodium Chloride 0.9% 100 ML IVPB SCH (09:26)
[2019-10-30] MEDS: Sucralfate 1 GM/10 ML UDCUP PO SCH ×3 (09:26→20:47)
[2019-10-30] MEDS ORDERED: Fluconazole 100 MG TAB PO SCH (16:30)
[2019-10-30] MEDS: Warfarin Sodium 5 MG TAB PO SCH (16:51)
[2019-10-30] MEDS: Sodium Chloride 0.9% (PF) 10 ML VIAL FS PRN (20:47)
[2019-10-30] MEDS: Enoxaparin Sodium 40 MG/0.4 ML SYRINGE SC SCH (20:48)
[2019-10-30] MEDS: Melatonin 3 MG TAB PO PRN (20:48)
--- NOTE | 2019-10-30 22:05 | PDOC.HOSPP ---
- Subjective Encounter Date: 10/30/19 Subjective: Doing better form the pyrosis/odynophagia. Patient's says she is weak because she is not eating solid food. She doesn't want solid food, but has been drinking the Ensure tid. She reports her bigger problem is dysuria and bladder spasms. - Objective Vital Signs & Weight: Vital Signs (12 hours) Temp Pulse Resp BP BP Pulse Ox 10/30/19 18:57 90 16 96 10/30/19 16:26 97.9 F 89 12 115/56 L 93 L 10/30/19 16:01 87 16 10/30/19 11:41 98.5 F 87 16 123/73 94 L Weight Admit Weight 170 lb Weight 164 lb I&O: 10/29/19 10/30/19 10/31/19 06:59 06:59 06:59 Intake Total 1260 1620 1200 Output Total 475 300 Balance 785 1320 1200 Result Diagrams: 10/30/19 04:07 10/30/19 04:07 Hospitalist ROS - Medication Medications: Active Medications Generic Name Dose Route Start Last Admin Trade Name Freq PRN Reason Stop Dose Admin Acetaminophen 500 mg 10/19/19 10:51 10/24/19 09:13 Tylenol PO 500 mg Q4H PRN Administration Headache/Fever or Pain Albuterol/Ipratropium 3 ml 10/21/19 11:00 10/30/19 18:57 Duoneb NEB 3 ml [id number] VIKY Administration Bumetanide 1 mg 10/25/19 09:00 10/30/19 09:25 Bumex PO 1 mg DAILY VIKY Administration Lidocaine HCl 10 ml/ Al 0 ml 10/26/19 17:00 10/30/19 16:51 Hydroxide/Mg Hydroxide 30 ml SSW 1 dose TID-WM VIKY Administration Enoxaparin Sodium 40 mg 10/18/19 21:00 10/30/19 20:48 Lovenox SC 40 mg 2100 VIKY Administration Ceftriaxone Sodium 1 gm/ 100 mls @ 200 mls/hr 10/24/19 10:00 10/30/19 09:26 Sodium Chloride IVPB 100 mls Q24HR VIKY Administration Melatonin 3 mg 10/21/19 21:36 10/30/19 20:48 Melatonin PO 3 mg HS PRN Administration Insomnia Metoprolol Succinate 50 mg 10/23/19 09:00 10/30/19 20:48 Toprol Xl PO 50 mg BID VIKY Administration Ondansetron HCl 4 mg 10/18/19 14:48 10/29/19 20:46 Zofran IVP 4 mg Q6H PRN Administration Nausea/Vomiting Pantoprazole Sodium 40 mg 10/25/19 21:00 10/30/19 20:47 Protonix IVP 40 mg Q12HR VIKY Administration Sodium Chloride 10 ml 10/20/19 21:00 10/30/19 20:48 Flush - Normal Saline IVF 10 ml Q12HR VIKY Administration Sodium Chloride 10 ml 10/20/19 09:25 10/23/19 05:37 Flush - Normal Saline IVF 10 ml PRN PRN Administration Saline Flush Sodium Chloride 10 ml 10/25/19 11:26 10/30/19 20:47 Normal Saline Pf FS 10 ml PRN PRN Administration RECONSTITUTION Sucralfate 1 gm 10/26/19 21:00 10/30/19 20:47 Carafate PO 1 gm TID VIKY Administration Tramadol HCl 50 mg 10/24/19 09:29 10/25/19 01:07 Ultram PO 50 mg Q6H PRN Administration Pain Warfarin Sodium 5 mg 10/30/19 17:00 10/30/19 16:51 Coumadin PO 5 mg [id number]@1700 [facility] Administration - Exam General Appearance: NAD, awake alert General - other findings: Appears generally uncomfortable. Heart: no murmur, no gallops, no rubs, normal peripheral pulses, irregular Respiratory: CTAB, no wheezes, no rales, no ronchi, normal chest expansion, no tachypnea, normal percussion Gastrointestinal: soft, non-tender, non-distended, normal bowel sounds, no palpable masses, no hepatomegaly, no splenomegaly, no bruit Extremities: no cyanosis, no clubbing, no edema Musculoskeletal: normal tone, generalized weakness Psychiatric: normal affect, normal behavior, A&O x 3 Hosp A/P (1) SBO (small bowel obstruction) Code(s): K56.609 - UNSP INTESTNL OBST, UNSP TO PARTIAL VERSUS COMPLETE OBST Status: Acute (2) Odynophagia Code(s): R13.10 - DYSPHAGIA, UNSPECIFIED Status: Acute (3) Afib Code(s): I48.91 - UNSPECIFIED ATRIAL FIBRILLATION Status: Acute (4) COPD (chronic obstructive pulmonary disease) Status: Acute (5) Esophagitis Code(s): K20.9 - ESOPHAGITIS, UNSPECIFIED Status: Acute (6) HTN (hypertension) Code(s): I10 - ESSENTIAL (PRIMARY) HYPERTENSION Status: Acute (7) UTI (urinary tract infection) Status: Acute - Plan Severe esophagitis. Continue PPI. If she can adequately take food and hydration and meds, she can likely DC for OP follow up. Having no other abdominal pain. Advance to mechanical soft diet. Rate controlled. Subtherapeutic INR. Resume the Warfarin. Urine growing E. coli and Klebsiella. Still has dysuria. Recheck UA and have nurse examine are when collecting. Has been on abx and steroids. May have candidiasis. Discontinue steroids.
[2019-10-31 02:36] LABS: Bilirubin Negative (Negative); Blood, Urine Negative (Negative); Clarity Clear (Clear); Glucose, Urine (Dipstick) Normal (Negative); Leukocyte Negative Leu/uL (Negative); Nitrite Negative (Negative); Protein, Urine (Dipstick) 10 mg/dL (Neg-Trace); Urobilinogen Normal mg/dL (Less than 2)
[2019-10-31 04:27] LABS: INR-International Normal Ratio 1.1
[2019-10-31 04:30] LABS: Band 1 % (5-11); Hemoglobin 10.2 g/dL (12.0-16.0); Lymphocytes 21 % (21-51); MDiff Complete? YES; Mean Corpuscular HGB CONC 32.8 g/dL (32.0-36.0); Mean Corpuscular Hemoglobin 31.4 pg (27.0-31.0); Mean Corpuscular Volume 95.8 fL (78.0-98.0); Mean Platelet Volume 9.9 fL (7.4-10.4); Monocytes 5 % (0-10); Neutrophil 73 % (42-75); Platelet Count 239 thou/uL (130-400); Platelet Morphology Comment Appears Adequate; RBC Distribution Width 13.3 % (11.5-14.5); Red Blood Cell (RBC) Count 3.25 mill/uL (4.20-5.40); White Blood Cell (WBC) Count 9.2 thou/uL (4.8-10.8)
[2019-10-31 04:42] LABS: Anion Gap 11 mmol/L (10-20); BUN (Urea Nitrogen) 37 mg/dL (9.8-20.1); Calc. Creatinine Clearance 69 mL/min (70-130); Calcium 8.5 mg/dL (7.8-10.44); Carbon Dioxide 32 mmol/L (23-31); Chloride 93 mmol/L (98-107); Estimated GFR-MDRD 76; Glucose 116 mg/dL (83-110); Potassium 3.9 mmol/L (3.5-5.1); Sodium 132 mmol/L (136-145)
[2019-10-31] MEDS: Lidocaine 2% Viscous Solution 10 ML, Aluminum & Magnesium Hydroxide 30 ML SSW SCH ×2 (08:21→12:08)
[2019-10-31] MEDS: Pantoprazole 40 MG VIAL IVP SCH ×2 (08:21→21:56)
[2019-10-31] MEDS: Fluconazole 100 MG TAB PO SCH (08:21)
[2019-10-31] MEDS: Sucralfate 1 GM/10 ML UDCUP PO SCH ×2 (08:21→16:11)
[2019-10-31] MEDS: Bumetanide 1 MG TAB PO SCH (08:21)
[2019-10-31] MEDS: cefTRIAXone\\ROCEPHIN 1 GM in Sodium Chloride 0.9% 100 ML IVPB SCH (09:59)
[2019-10-31] MEDS: Warfarin Sodium 5 MG TAB PO SCH (17:57)
--- NOTE | 2019-10-31 20:03 | PDOC.HOSPP ---
- Subjective Encounter Date: 10/31/19 Subjective: Says she not doing well. When pushed for specifics, she says she still has some dysuria and is very weak. No odynophagia. Having issues with trying to take the swallowed meds and eating. She did eat real food last night. Still using the Ensure. She says she was active prior to the admission. - Objective Vital Signs & Weight: Vital Signs (12 hours) Temp Pulse Pulse Pulse Resp BP BP 10/31/19 18:58 90 18 10/31/19 16:14 106 H 20 10/31/19 15:57 98.3 F 93 16 10/31/19 11:44 104 H 134 H 113/54 L 116/58 L 10/31/19 11:17 97.9 F 96 14 10/31/19 10:49 87 18 10/31/19 08:04 BP Pulse Ox 10/31/19 18:58 97 10/31/19 16:14 100 10/31/19 15:57 114/54 L 93 L 10/31/19 11:44 10/31/19 11:17 113/53 L 95 10/31/19 10:49 99 10/31/19 08:04 100 Weight Admit Weight 170 lb Weight 164 lb 1 oz I&O: 10/30/19 10/31/19 11/01/19 06:59 06:59 06:59 Intake Total 1620 1285 1060 Output Total 300 400 400 Balance 1320 885 660 Result Diagrams: 10/31/19 04:09 10/31/19 04:09 Hospitalist ROS - Medication Medications: Active Medications Generic Name Dose Route Start Last Admin Trade Name [place] PRN Reason Stop Dose Admin Acetaminophen 500 mg 10/19/19 10:51 10/24/19 09:13 Tylenol PO 500 mg Q4H PRN Administration Headache/Fever or Pain Albuterol/Ipratropium 3 ml 10/21/19 11:00 10/31/19 18:58 Duoneb NEB 3 ml [id number] VIKY Administration Bumetanide 1 mg 10/25/19 09:00 10/31/19 08:21 Bumex PO 1 mg DAILY VIKY Administration Enoxaparin Sodium 40 mg 10/18/19 21:00 10/30/19 20:48 Lovenox SC 40 mg 2100 VIKY Administration Fluconazole 100 mg 10/31/19 09:00 10/31/19 08:21 Diflucan PO 100 mg DAILY VIKY Administration Ceftriaxone Sodium 1 gm/ 100 mls @ 200 mls/hr 10/24/19 10:00 10/31/19 09:59 Sodium Chloride IVPB 100 mls Q24HR VIKY Administration Melatonin 3 mg 10/21/19 21:36 10/30/19 20:48 Melatonin PO 3 mg HS PRN Administration Insomnia Metoprolol Succinate 50 mg 10/23/19 09:00 10/31/19 08:21 Toprol Xl PO 50 mg BID VIKY Administration Ondansetron HCl 4 mg 10/18/19 14:48 10/29/19 20:46 Zofran IVP 4 mg Q6H PRN Administration Nausea/Vomiting Pantoprazole Sodium 40 mg 10/25/19 21:00 10/31/19 08:21 Protonix IVP 40 mg Q12HR VIKY Administration Sodium Chloride 10 ml 10/20/19 21:00 10/31/19 08:29 Flush - Normal Saline IVF 10 ml Q12HR VIKY Administration Sodium Chloride 10 ml 10/20/19 09:25 10/23/19 05:37 Flush - Normal Saline IVF 10 ml PRN PRN Administration Saline Flush Sodium Chloride 10 ml 10/25/19 11:26 10/30/19 20:47 Normal Saline Pf FS 10 ml PRN PRN Administration RECONSTITUTION Tramadol HCl 50 mg 10/24/19 09:29 10/25/19 01:07 Ultram PO 50 mg Q6H PRN Administration Pain Warfarin Sodium 5 mg 10/30/19 17:00 10/31/19 17:57 Coumadin PO 5 mg [id number]@1700 VIKY Administration - Exam General Appearance: NAD, awake alert Heart: no murmur, no gallops, no rubs, normal peripheral pulses, irregular Respiratory: CTAB, no wheezes, no rales, no ronchi, normal chest expansion, no tachypnea, normal percussion Gastrointestinal: soft, non-tender, non-distended, normal bowel sounds, no palpable masses, no hepatomegaly, no splenomegaly, no bruit Extremities: no cyanosis, no clubbing, no edema Skin: normal turgor Musculoskeletal: generalized weakness Psychiatric: normal behavior, flat affect Hosp A/P (1) SBO (small bowel obstruction) Code(s): K56.609 - UNSP INTESTNL OBST, UNSP TO PARTIAL VERSUS COMPLETE OBST Status: Resolved (2) Odynophagia Code(s): R13.10 - DYSPHAGIA, UNSPECIFIED Status: Resolved (3) Afib Code(s): I48.91 - UNSPECIFIED ATRIAL FIBRILLATION Status: Chronic (4) COPD (chronic obstructive pulmonary disease) Status: Chronic (5) Esophagitis Code(s): K20.9 - ESOPHAGITIS, UNSPECIFIED Status: Acute (6) HTN (hypertension) Code(s): I10 - ESSENTIAL (PRIMARY) HYPERTENSION Status: Chronic (7) UTI (urinary tract infection) Status: Acute - Plan Severe esophagitis. Continue PPI. Stop the carafate and swallowed meds. Having no other abdominal pain. Advanced to mechanical soft diet. Tolerating diet. Continue supplements. Rate controlled. Subtherapeutic INR. Resume the Warfarin. Urine grew E. coli and Klebsiella. Repeat UA is negative. Can likely DC the Rocephin tomorrow. Still has dysuria. Has some superficial skin irritation. Continue Diflucan. DC the Purewick. Patient is resistant because she doesn't want to get up. Insisted she get up with help and use the bedside commode. Discontinue steroids. She is expecting to go to [facility] for rehab. Looks like she has been accepted. Anticipate tomorrow.
[2019-10-31 20:48] LABS: Prothrombin Time 12.7 SEC (12.0-14.7)
[2019-10-31 21:16] LABS: PTT 22.5 SEC (22.9-36.1)
[2019-10-31] MEDS: Sodium Chloride 0.9% (PF) 10 ML VIAL FS PRN (21:56)
[2019-10-31] MEDS: Enoxaparin Sodium 40 MG/0.4 ML SYRINGE SC SCH (21:56)
[2019-10-31] MEDS: Melatonin 3 MG TAB PO PRN (21:56)
[2019-11-01 04:49] LABS: Prothrombin Time 13.2 SEC (12.0-14.7)
[2019-11-01] MEDS: Fluconazole 100 MG TAB PO SCH (08:54)
[2019-11-01] MEDS: Bumetanide 1 MG TAB PO SCH (08:55)
[2019-11-01] MEDS: Pantoprazole 40 MG VIAL IVP SCH (08:56)
[2019-11-01] MEDS: cefTRIAXone\\ROCEPHIN 1 GM in Sodium Chloride 0.9% 100 ML IVPB SCH (11:11)
[2019-11-01 11:19] VITALS: TEMP 97.4
[2019-11-01 16:07] VITALS: BP 113/56
--- NOTE | 2019-11-03 09:35 | PQF ---
ADRIEN MATTSON DAVID R MD [id number] [facility]-288 [id number] CLINICAL DOCUMENTATION CLARIFICATION FORM: POST DISCHARGE Addendum to original discharge summary date: ____ Late entry note date: __ DATE:11/03/2019 ATTN:SHAYLA PARKINSON MD Please exercise your independent, professional judgment in responding to the clarification form. Clinical indicators are provided on the bottom of this form for your review Please check appropriate box(s): HEART FAILURE: A. TYPE: [ ] Systolic / HFrEF [ ] Diastolic / HFpEF [ ] Combined Systolic / Diastolic [ ] Other diagnosis [ ] Unable to determine In addition, please specify: Present on Admission (POA): [ ] Yes [ ] No [ ] Unable to determine For continuity of documentation, please document condition throughout progress notes and discharge summary. Thank You. CLINICAL INDICATORS - SIGNS / SYMPTOMS / LABS Acute CHF-Documented in Hospitalist progress note on 10/18 by Arturo Hong MD SOB, Bibasilar crackles on auscultation, pulm edema on CXR, Elevated BNP- Documented in Hospitalist progress note on 10/18 by Arturo Hong MD Ejection fraction is visually estimated at 40-45%-Documented in ECHO on 10/21 RISKS: HTN-Documented in Hospitalist progress note on 10/18 by Arturo Hong MD Afib-Documented in Hospitalist progress note on 10/18 by Arturo Hong MD TREATMENTS: DC IVF-Documented in Hospitalist progress note on 10/18 by Arturo Hong MD Low salt diet with 1500cc fluid restriction -Documented in Hospitalist progress note on 10/18 by Arturo Hong MD Transthoracic ECHO-Documented in Hospitalist progress note on 10/18 by Arturo Hong MD Continue IV Bumex and fluid restriction-Documented in Hospitalist progress note on 10/18 by Arturo Hong MD SAP Assistant Health Educator [employer] Win[employer] (This form is maintained as a part of the permanent medical record) 2014 [employer]. All Rights Reserved [email or web address]
[2019-11-05] MEDS ORDERED: Warfarin Sodium 7.5 MG TAB PO SCH (17:00)
== END 2019-11-01 15:38 | DRG 389 ==
LOC: 2NO 14:14
PROVIDERS: ADMIT Internal Medicine; ATTEND Internal Medicine
PROC: 0D9670Z Drainage of Stomach with Drainage Device, Via Natural or Artificial Opening (ICD-10-PCS; principal; 2019-10-28)
PROC: 0DB68ZX Excision of Stomach, Via Natural or Artificial Opening Endoscopic, Diagnostic (ICD-10-PCS; 2019-10-28)
DX: K56.600 Partial intestinal obstruction, unspecified as to cause (principal); N39.0 Urinary tract infection, site not specified; I48.91 Unspecified atrial fibrillation; J44.9 Chronic obstructive pulmonary disease, unspecified; E03.9 Hypothyroidism, unspecified; Z90.49 Acquired absence of other specified parts of digestive tract; Z90.710 Acquired absence of both cervix and uterus; K21.0 Gastro-esophageal reflux disease with esophagitis; R13.10 Dysphagia, unspecified; K29.70 Gastritis, unspecified, without bleeding; B96.20 Unspecified Escherichia coli [E. coli] as the cause of diseases classified elsewhere; B96.1 Klebsiella pneumoniae [K. pneumoniae] as the cause of diseases classified elsewhere; I11.0 Hypertensive heart disease with heart failure; I50.9 Heart failure, unspecified; Z98.890 Other specified postprocedural states
CPT/HCPCS: 36415; 71045; 74018; 74022; 74250; 80048; 81001; 81003; 83735; 83880; 84100; 84484; 85007; 85025; 85027; 85610; 85730; 87077; 87086; 87186; 88305; 88312; 88313; 88342; 93005; 93010; 93306; 93798; 94640; C9113; J0696; J1650; J1940; J2270; J2405; J2704; J3430; J3475; J3480; J3490; J7050; J7512; J7620; Q9963; S0028

== ENCOUNTER 2023-09-27 20:51 | Inpatient (IN) | payer MEDICARE ==
[2023-09-27] MEDS ORDERED: fentaNYL 50 mcg/mL 1 mL Vial ONE ×2 (21:34→23:40)
[2023-09-27] MEDS ORDERED: Boostrix 0.5 ML (Tdap) VIAL (>/=7 yrs of age) ONE (21:36)
[2023-09-27 22:08] LABS: #Monocytes 0.9 thou/uL (0.11-0.59); #Neutrophils 11.4 thou/uL (1.40-6.50); %Basophils 0.2 % (0.0-1.0); %Eosinophils 0.3 % (0.0-10.0); %Lymphocytes 8.5 % (21.0-51.0); %Monocytes 6.4 % (0.0-10.0); Hematocrit 39.8 % (36.0-47.0); Mean Corpuscular HGB CONC 32.7 g/dL (32.0-36.0); Mean Corpuscular Hemoglobin 31.1 pg (27.0-31.0); Mean Corpuscular Volume 95.2 fl (78.0-98.0); Mean Platelet Volume 11.5 fL (7.4-10.4); Platelet Count 188 10x3/uL (130-400); RBC Distribution Width 12.4 % (11.5-14.5); Red Blood Cell (RBC) Count 4.18 mill/uL (4.20-5.40); White Blood Cell (WBC) Count 13.6 10x3/uL (4.8-10.8)
[2023-09-27 22:22] LABS: INR-International Normal Ratio 1.1; PTT 35.3 sec (22.9-36.1); Prothrombin Time 14.6 sec (12.0-14.7)
[2023-09-27 22:31] LABS: ALT (SGPT) 12 U/L (8-55); AST (SGOT) 17 U/L (5-34); Albumin 4.2 g/dL (3.4-4.8); Alkaline Phosphatase 75 U/L (40-110); Anion Gap 12 mmol/L (10-20); BUN (Urea Nitrogen) 27 mg/dL (9.8-20.1); Bilirubin, Total 0.6 mg/dL (0.2-1.2); Calc. Creatinine Clearance 0 mL/min (70-130); Calcium 9.3 mg/dL (7.8-10.44); Carbon Dioxide 29 mmol/L (23-31); Chloride 101 mmol/L (98-107); Estimated GFR 48; Globulin 2.7 g/dL (2.4-3.5); Glucose 145 mg/dL (83-110); Potassium 3.3 mmol/L (3.5-5.1); Protein, Total 6.9 g/dL (5.8-8.1); Sodium 139 mmol/L (136-145)
[2023-09-27 22:33] LABS: Troponin I 0.011 ng/mL (< 0.028)
[2023-09-27] MEDS ORDERED: hydrALAZINE 20 MG/ML VIAL SLOW IVP PRN (22:53)
[2023-09-27] MEDS ORDERED: TETANUS, DIPHTHERIA TOX,ADULT (TDVAX) 0.5 ML VIAL IM ONE (22:53)
[2023-09-27] MEDS ORDERED: Ondansetron PF 4 MG/2 ML Vial IVP PRN (22:53)
[2023-09-27] MEDS ORDERED: traMADol HCl 50 MG TAB PO PRN (22:53)
[2023-09-27] MEDS ORDERED: Dextrose 50% Abboject 50 ML SYRINGE SLOW IVP PRN (22:53)
[2023-09-27] MEDS ORDERED: Glucagon 1 MG/ML KIT IM PRN (22:53)
[2023-09-27] MEDS ORDERED: Dextrose 5% in Water 1,000 ML IV PRN (22:53)
[2023-09-28 02:31] VITALS: BMI 22.6
[2023-09-28] MEDS: Lactated Ringer's 1,000 ML IV SCH ×2 (05:40→15:03)
[2023-09-28 05:42] LABS: #Neutrophils 10.6 thou/uL (1.40-6.50); %Basophils 0.2 % (0.0-1.0); %Eosinophils 0.2 % (0.0-10.0); %Monocytes 7.8 % (0.0-10.0); %Neutrophils 85.3 % (42.0-75.0); Hematocrit 40.5 % (36.0-47.0); Hemoglobin 13.3 g/dL (12.0-16.0); Mean Corpuscular HGB CONC 32.8 g/dL (32.0-36.0); Mean Corpuscular Hemoglobin 30.9 pg (27.0-31.0); Mean Corpuscular Volume 94.2 fl (78.0-98.0); Mean Platelet Volume 12.1 fL (7.4-10.4); Platelet Count 160 10x3/uL (130-400); RBC Distribution Width 12.7 % (11.5-14.5); White Blood Cell (WBC) Count 12.4 10x3/uL (4.8-10.8)
[2023-09-28 06:02] LABS: Anion Gap 15 mmol/L (10-20); BUN (Urea Nitrogen) 25 mg/dL (9.8-20.1); Calc. Creatinine Clearance 42 mL/min (70-130); Calcium 9.4 mg/dL (7.8-10.44); Carbon Dioxide 27 mmol/L (23-31); Chloride 101 mmol/L (98-107); Estimated GFR 59; Glucose 135 mg/dL (83-110); Potassium 3.9 mmol/L (3.5-5.1); Sodium 139 mmol/L (136-145)
[2023-09-28] MEDS: Senokot S 8.6-50 MG TAB PO SCH ×3 (07:38→21:40)
[2023-09-28] MEDS ORDERED: CEFAZOLIN 2 GM in Sodium Chloride 0.9% 100 ML IVPB SCH (08:30)
[2023-09-28] MEDS: Famotidine/PF 20 mg/2ml Vial SLOW IVP SCH (08:55)
[2023-09-28] MEDS: Hydrochlorothiazide 25 MG TAB PO SCH (10:31)
[2023-09-28] MEDS ORDERED: Cipro 250 MG TAB PO SCH (21:00)
[2023-09-28] MEDS: Morphine 2 MG/ML VIAL SLOW IVP PRN (21:42)
[2023-09-28] MEDS: Ipratropium/Albuterol 3 ML NEB NEB PRN (21:49)
[2023-09-29] MEDS: Acetaminophen 325 MG TAB PO PRN (00:45)
[2023-09-29] MEDS: Lactated Ringer's 1,000 ML IV SCH ×2 (00:47→15:05)
[2023-09-29] MEDS: Ipratropium/Albuterol 3 ML NEB NEB PRN (05:52)
[2023-09-29] MEDS: Levothyroxine Sodium 75 MCG TAB PO SCH (05:52)
[2023-09-29] MEDS: Famotidine/PF 20 mg/2ml Vial SLOW IVP SCH (09:14)
[2023-09-29] MEDS: Senokot S 8.6-50 MG TAB PO SCH ×2 (09:15→20:26)
[2023-09-29] MEDS: Hydrochlorothiazide 25 MG TAB PO SCH (09:15)
[2023-09-29] MEDS ORDERED: CEFAZOLIN 2 GM VIAL ONE (12:29)
[2023-09-29] MEDS ORDERED: Sodium Chloride 0.9% 100 ML ONE (12:29)
[2023-09-29] MEDS ORDERED: fentaNYL 50 mcg/mL 1 mL Vial ONE ×2 (12:48→13:49)
[2023-09-29] MEDS ORDERED: PHENYLEPHRINE-NS 100 MCG/ML 10 ML SYRINGE ONE (13:01)
[2023-09-29] MEDS ORDERED: PROPOFOL 20 ML ONE (13:06)
[2023-09-29] MEDS ORDERED: Lidocaine 1% PF 5 ML VIAL ONE (13:06)
[2023-09-29] MEDS ORDERED: Ondansetron PF 4 MG/2 ML Vial ONE (13:06)
[2023-09-29] MEDS ORDERED: Dexamethasone 4 mg/ml Vial ONE (13:07)
[2023-09-29] MEDS ORDERED: Rocuronium Bromide 10 MG/ML (10ML VIAL) ONE (13:07)
[2023-09-29] MEDS ORDERED: Metoprolol Tartrate 5 MG (5 mL) VIAL ONE (13:20)
[2023-09-29] MEDS ORDERED: Promethazine HCl 25 MG/ML VIAL IM PRN (13:26)
[2023-09-29] MEDS ORDERED: Ondansetron HCl/PF 4 MG/2 ML Vial IVP PRN (13:26)
[2023-09-29] MEDS ORDERED: Morphine Sulfate 2 MG/ML SYRINGE SLOW IVP PRN (13:26)
[2023-09-29] MEDS ORDERED: SUGAMMADEX SODIUM 200 MG/2 ML VIAL ONE (13:39)
[2023-09-29] MEDS ORDERED: Ipratropium/Albuterol 3 ML NEB ONE (14:19)
[2023-09-29] MEDS: CEFAZOLIN 2 GM in Sodium Chloride 0.9% 100 ML IVPB SCH (20:26)
[2023-09-30] MEDS: Acetaminophen 325 MG TAB PO PRN (00:45)
[2023-09-30] MEDS: Morphine 2 MG/ML VIAL SLOW IVP PRN (00:45)
[2023-09-30] MEDS: Lactated Ringer's 1,000 ML IV SCH ×3 (00:49→15:40)
[2023-09-30 05:11] LABS: #Monocytes 1.3 thou/uL (0.11-0.59); %Lymphocytes 9.2 % (21.0-51.0); %Monocytes 14.1 % (0.0-10.0); %Neutrophils 75.8 % (42.0-75.0); Hematocrit 26.8 % (36.0-47.0); Hemoglobin 8.6 g/dL (12.0-16.0); Mean Corpuscular HGB CONC 32.1 g/dL (32.0-36.0); Mean Corpuscular Hemoglobin 30.7 pg (27.0-31.0); Mean Corpuscular Volume 95.7 fl (78.0-98.0); Mean Platelet Volume 12.2 fL (7.4-10.4); Platelet Count 122 10x3/uL (130-400); RBC Distribution Width 12.4 % (11.5-14.5); White Blood Cell (WBC) Count 9.2 10x3/uL (4.8-10.8)
[2023-09-30] MEDS ORDERED: Apixaban 2.5 MG TAB PO SCH (09:45)
[2023-09-30] MEDS: CEFAZOLIN 2 GM in Sodium Chloride 0.9% 100 ML IVPB SCH (13:06)
[2023-09-30] MEDS: Levothyroxine Sodium 75 MCG TAB PO SCH (13:07)
[2023-09-30] MEDS: Hydrochlorothiazide 25 MG TAB PO SCH (13:07)
[2023-09-30] MEDS: Famotidine/PF 20 mg/2ml Vial SLOW IVP SCH (13:07)
[2023-09-30] MEDS: Senokot S 8.6-50 MG TAB PO SCH ×2 (13:07→20:27)
[2023-09-30] MEDS: Ipratropium/Albuterol 3 ML NEB NEB PRN (15:27)
[2023-09-30] MEDS: Apixaban 2.5 MG TAB PO SCH (20:28)
[2023-10-01 04:47] LABS: #Eosinphils 0.1 thou/uL (0.0-0.7); #Monocytes 1.1 thou/uL (0.11-0.59); #Neutrophils 6.4 thou/uL (1.40-6.50); %Basophils 0.1 % (0.0-1.0); %Eosinophils 1.5 % (0.0-10.0); %Lymphocytes 13.4 % (21.0-51.0); %Monocytes 12.7 % (0.0-10.0); %Neutrophils 71.9 % (42.0-75.0); Hematocrit 27.2 % (36.0-47.0); Hemoglobin 8.9 g/dL (12.0-16.0); Mean Corpuscular HGB CONC 32.7 g/dL (32.0-36.0); Mean Corpuscular Hemoglobin 31.4 pg (27.0-31.0); Mean Corpuscular Volume 96.1 fl (78.0-98.0); Mean Platelet Volume 12.7 fL (7.4-10.4); Platelet Count 127 10x3/uL (130-400); RBC Distribution Width 12.6 % (11.5-14.5); Red Blood Cell (RBC) Count 2.83 mill/uL (4.20-5.40); White Blood Cell (WBC) Count 8.9 10x3/uL (4.8-10.8)
[2023-10-01] MEDS: Levothyroxine Sodium 75 MCG TAB PO SCH (05:59)
[2023-10-01] MEDS: Lactated Ringer's 1,000 ML IV SCH (05:59)
[2023-10-01] MEDS ORDERED: Lactated Ringer's 1,000 ML IV SCH (06:10)
[2023-10-01] MEDS: Senokot S 8.6-50 MG TAB PO SCH (08:45)
[2023-10-01] MEDS: Hydrochlorothiazide 25 MG TAB PO SCH (08:45)
[2023-10-01] MEDS: Apixaban 2.5 MG TAB PO SCH (08:45)
[2023-10-01] MEDS: Famotidine/PF 20 mg/2ml Vial SLOW IVP SCH (08:45)
[2023-10-01 08:47] VITALS: BP 114/57; TEMP 97.9
[2023-10-01] MEDS ORDERED: FLU VACC QS2023(65UP)/MF59C/PF 60 MCG/0.5 ML SYRINGE IM ONE (09:00)
[2023-10-01] MEDS ORDERED: Polyethylene Glycol 3350 17 GM Packet PO SCH (09:00)
== END 2023-10-01 12:06 | DRG 522 ==
LOC: ERS 20:51 → SURG B 22:55
PROVIDERS: ADMIT Surgery; ATTEND Surgery
PROC: 0SRS0JA Replacement of Left Hip Joint, Femoral Surface with Synthetic Substitute, Uncemented, Open Approach (ICD-10-PCS; principal; 2023-09-29)
DX: S72.012A Unspecified intracapsular fracture of left femur, initial encounter for closed fracture (principal); I48.91 Unspecified atrial fibrillation; E03.9 Hypothyroidism, unspecified; E78.5 Hyperlipidemia, unspecified; F03.90 Unspecified dementia, unspecified severity, without behavioral disturbance, psychotic disturbance, mood disturbance, and anxiety; I10 Essential (primary) hypertension; W19.XXXA Unspecified fall, initial encounter; J43.9 Emphysema, unspecified; Z90.49 Acquired absence of other specified parts of digestive tract; Z98.890 Other specified postprocedural states; Z90.710 Acquired absence of both cervix and uterus; Z87.891 Personal history of nicotine dependence; Y92.009 Unspecified place in unspecified non-institutional (private) residence as the place of occurrence of the external cause
CPT/HCPCS: 36415; 70450; 71045; 71250; 72125; 72170; 80048; 80053; 84484; 85025; 85610; 85730; 86850; 86900; 86901; 90471; 90715; 93005; 93010; 96374; C1713; C1776; J1100; J2272; J2405; J2704; J3010; J3490; J7120; J7620; S0028